=== PATIENT | female | born 2005 | race Caucasian/White ===

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

== ENCOUNTER 2025-10-08 20:26 | Emergency (ER) | payer BC, MEDICAID, SELFPAY ==
--- NOTE | 2025-10-08 | ECG_ITS ---
Test Reason : CP Blood Pressure : */* mmHG Vent. Rate : 88 BPM Atrial Rate : 88 BPM P-R Int : 130 ms QRS Dur : 84 ms QT Int : 354 ms P-R-T Axes : 28 55 -15 degrees QTcB Int : 428 ms Normal sinus rhythm Nonspecific T wave abnormality Borderline ECG When compared with ECG of 06-Dec-2023 22:02, No significant change was found Referred By: Generic ED Physician Electronically Signed By: JAY LINO
--- NOTE | ~2025-10-08 | XR_ITS ---
CLINICAL HISTORY: cp 2 view chest x-ray Comparison: CR/SR - XR CHEST 2 VIEWS - 07/06/24 21:21 EDT Findings: No consolidation or effusion. Normal size heart. No acute fracture. IMPRESSION: 1. No acute findings. This document has been electronically signed by: Aline Jo MD on 10/08/2025 21:50:12
[2025-10-08 20:33] VITALS: BP 113/55; PULSE 100; RESP 18; TEMP 36.8; O2SAT 99; BMI 23.6
--- NOTE | 2025-10-08 20:48 | MHC.EDTECH ---
Pt refusing labs at this time. trial examiner aware.
--- OUTSIDE RECORDS SUMMARY | 2025-10-08 20:50 | XMS_ITS | Encounter Summary ---
Author Organization [facility] Address [address] [place] [address] [place] [phone] Phone Care Team Providers Care Taping Foreman Name Role Phone Ashley Barakat MD Primary Care Provider [phone] Encounter Details Date Type Department Care Team ([facility] st Contact Info) Description 06/24/2024 Procedure Pass [facility], [place] [facility], [address]nd [place] [address] Social History Tobacco Use Types Packs/Day Years Used Date Smoking Tobacco: Never Smokeless Tobacco: Never Alcohol Use Standard Drinks/Week Comments Not Currently 2 (1 standard drink = 0.6 oz pur e alcohol) Education Answer Date Recorded Are you interested in more education? Not on rosalee e 03/14/2023 Are you concerned about learning? Not on file 03/14/2023 No 03/14/2023 No 03/14/2023 Digital Access Answer Date Recorded No 04/12/2023 No 04/12/2023 Reliable internet access at home? Not on file 04/12/2023 Device with a working camera? Not on file Intimate Partner Violence Answer Date R ecorded Are you denied basic needs s uch as food, clothing, or medical care? No 06/23/2024 In the past 12 months have y ou been in a relationship with a person who hurts, threatens, or tries to control you? No 06/23/2024 Are you denied basic needs s uch as food, clothing, or medical care? No 06/23/2024 In the past 12 months have y ou been in a relationship with a person who hurts, threatens, or tries to control you? No 06/23/2024 Comments No Sex and Gender Information Value Date Recorded Sex Assigned at Not on file Legal Sex Female 2:07 PM EDT Gender Identity Not on file Sexual Orientation Not on file documented as of this encounter Plan of Treatment Not on file documented as of this encounter Visit Diagnoses Not on filedocumented in this encounter Additional Health Concerns Infection Onset Date Last Indicated Resolved Time CDiff-Risk 06/22/2024 06/24/2024 06/24/2024 6:18 PM EDT CDiff-Risk 06/23/2024 06/23/2024 06/26/2024 10:0 8 AM EDT documented as of this encounter Care Teams Taping Foreman Relationship Specialty Start Date End Date Ashley Barakat MD [address] [place] [address], [facility] [address] [place] [address] [email or web address] PCP - General Pediatrics 03/08/20 documented as of this encounter Additional Source Comments The information contained in this document represents components of the legal health record. It is not the complete legal health record.[facility]
--- OUTSIDE RECORDS SUMMARY | 2025-10-08 20:51 | XMS_ITS | Clinical Summary ---
Author Organization [facility] Address [address] [place] [address] Care Team Providers Care Scrip Clerk Name Role Phone Howard Valdes MD Primary Care Provider [phone] Source Comments Please note that some or all of the patient's information could have additional privacy protections. State laws allow health care providers to render certain types of treatment to minors without parental consent. Please do not assume that this information can be shared solely by obtaining just the consent of the patient's parent/guardian. Please determine if all or part of the patient's care was rendered without parent/guardian involvement. And, if so, obtain the minor's consent prior to disclosure.[facility] Social History Tobacco Use Types Packs/Day Years Used Date Smoking Tobacco: Never Assessed Comments Unknown Sex and Gender Information Value Date Recorded Sex Assigned at Not on file Legal Sex Female 11:21 AM EST Gender Identity Not on file Sexual Orientation Not on file Plan of Treatment Health Maintenance Due Date Last Done Comments DTaP/TDAP/TD VACCINES (1 - Tdap) 2012 ADOLESCENT HIV SCREENING 2018 COVID-19 Vaccine (2023-2 5 season) 2025 INFLUENZA (#1) 2025 NIRSEVIMAB VACCINES UNDER 8 MONTHS Aged Out No longer eligible based on patient's age to complete this topic Insurance BLUE [employer]OSS Care Teams Scrip Clerk Relationship Specialty Start Date End Date Howard Valdes MD [address] [place] [address] [address] [phone] PCP - General 01/07/20
--- OUTSIDE RECORDS SUMMARY | 2025-10-08 20:51 | XMS_ITS ---
Author Name [facility] Organization Unknown Encounters Encounter Type Encounter Reason Primary Diagnosis Location Date Ambulatory [facility] 12/10/2024 Ambulatory [facility] 11/15/2024
--- OUTSIDE RECORDS SUMMARY | 2025-10-08 20:51 | XMS_ITS | Clinical Summary ---
Author Organization [address] Address [address] [place] [phone] Phone Care Team Providers Care Cattle Rancher Name Role Phone Physician, No Pcp Primary Care Provider Unavaila ble Allergies Active Allergy Reactions Criticality Noted Date Comments Amoxicillin 11/10/2024 Penicillin 11/10/2024 Active Problems Problem Noted Date Diagnosed Date Latent tuberculosis by blood test 06/26/2024 Alcohol abuse 06/24/2024 Other specified eating disorder 06/24/2024 Housing insecurity 06/23/2024 Weight loss 06/22/2024 Hyperprolactinemia ([facility] V24) 08/24/2022 Irregular menstrual bleeding 08/17/2022 PTSD (post-traumatic stress disorder) 08/17/2022 Anxiety 01/07/2020 Overview (11/10/2024): Certainly affecting exam, perception of pain Last Assessment & Plan: Normal screening today, doing well. Certainly affecting exam, perception of pain Last Assessment & Plan: Normal screening today, doing well Crohn's colitis, with rectal bleeding (CMS/HCC V24, CMS/[facility] V28) 01/04/2020 Overview (11/10/2024): Followed by [facility] (Akila Paulino), diet controlled. Last Assessment & Plan: Ongoing complaints of abdominal pain, suspicious for smoldering Crohn's, though labs last month were reassuring. GI follow-up currently scheduled for April. Unclear if joint complaints are related to Crohn's, but otherwise no systemic symptoms. We will obtain fecal calprotectin and see if GI can make an earlier appointment Primary insomnia 02/15/2017 Overview (11/10/2024): Melatonin ; Helps her to sleep but not maintain sleep -sometimes wakes, and when she wakes she is up for hrs - will try to go up to 10 mg if not better consider Neurology for sleep disorder 09/2021 - Melatonin ; Helps her to sleep but not maintain sleep -sometimes wakes, and when she wakes she is up for hrs - will try to go up to 10 mg if not better consider Neurology for sleep disorder 06/2022 - Sleeps 4-5 hours per night. Has tried melatonin in the past with unclear effect. Wakes up tired and drinks a venti coffee every morning. Discussed sleep hygiene techniques. Last Assessment & Plan: Sleeps 4-5 hours per night. Has tried melatonin in the past with unclear effect. Wakes up tired and drinks a venti coffee every morning. Discussed sleep hygiene techniques. Keratosis pilaris 09/07/2016 Overview (11/10/2024): Derm- [facility] Acne Clindamy , Avar/ unable to use per Derm Lactose intolerance 02/14/2016 Overview (11/10/2024): With everything Acquired tight Achilles tendon 11/02/2015 Overview (11/10/2024): Toe walking Rehab- sensory issue Off no and on better Need to do home exercise Imaging abnormalities 05/18/2015 Overview (11/10/2024): Ordered by endocrinology to follow question of precocious puberty; questionable small abn seen in pituitary on scan in 2005 stable on follow up MRI in 2006. Findings are without clinical significance. Reviewed images and reports with parent and given copies of reports from [facility] 05/18/15. No repeat brain imaging needed, no neuro follow up needed for this. Pituitary microadenoma (CMS/HCC V24, CMS/HCC V28 ) 05/18/2015 Overview (11/10/2024): Ordered by endocrinology to follow question of precocious puberty; questionable small abn seen in pituitary on scan in 2005 stable on follow up MRI in 2006. Findings are without clinical significance. Reviewed images and reports with parent and given copies of reports from [facility] 05/18/15. No repeat brain imaging needed, no neuro follow up needed for this. Autism spectrum disorder 02/11/2015 Overview (11/10/2024): Need [facility] therapist, care coordination Less anger now -Has in home counselor + Anxiety stable and possible ADHD Weighted blanket for sleep not covered Per mom Need [facility] therapist, care coordination Less anger now -Has in home counselor + Anxiety stable and possible ADHD Weighted blanket for sleep not covered Last Assessment & Plan: Mild, IEP supports in place, good social connections. Scoliosis 02/15/2014 Memory problem 02/02/2011 Overview (11/10/2024): Executive functioning low / memory concern / ADHD Neuropsych testing done [facility] Consult : no concerns Social History Tobacco Use Types Packs/Day Years Used Date Smoking Tobacco: Never Smokeless Tobacco: Never Tobacco Cessation:Counseling Given: Not Answered Alcohol Use Standard Drinks/Week Comments Not Currently 0 (1 standard drink = 0.6 oz pur e alcohol) Comments No Sex and Gender Information Value Date Recorded Sex Assigned at Not on file Legal Sex Female 1:23 PM EST Gender Identity Not on file Sexual Orientation Not on file Obstetrics History Para Term AB IAB SAB Ectopic Multiple Livin g Live Births 0 0 0 0 0 0 0 0 Last Filed Vital Signs Vital Sign Reading Time Taken Comments Blood Pressure 111/75 11/10/2024 2:18 PM EST Pulse 110 11/10/2024 2:18 PM EST Temperature - - Respiratory Rate - - Oxygen Saturation - - Inhaled Oxygen Concentration - - Weight 53.1 kg (117 lb) 11/10/2024 2:18 PM EST Height - - Body Mass Index - - Plan of Treatment Health Maintenance Due Date Last Done Comments Gonorrhea/Chlamydia Screening 2005 Meningococcal B Vaccine (1 of 2 - Standard) 2021 Hepatitis A Vaccines (2 of 2 - Risk 2-dose series) 02/22/2024 08/23/2023 Annual Well Child Visit (3-21 years old) 10/07/2024 03/02/2019, 02/21/2018, 02/15/2017, Additional history exists HIV Screening 10/07/2024 Social Influencers of Health Screening 10/07/2024 Depression Screening 11/18/2024 COVID-19 Vaccine ( season) 2025 Influenza Vaccine (#1) 2025 08/23/2023, 2020 DTaP,Tdap,and Td Vaccines (7 - Td or Tdap) 02/23/2026 02/24/2016, 01/09/2010, 01/09/2010, Additional history exists Cholesterol Screening (Lipid Panel) 04/03/2029 04/03/2024 RSV Immunization Adult Patients (1 - 1-dose 75+ series) 2080 HIB Vaccines Completed 04/19/2006, 07/19, 2005, Additional history exists Pneumococcal Vaccine: Pediatrics (0 to 5 Years) and At-Risk Patients (6 to 49 Years) Completed 04/19/2006, 2005, 2005, Additional history exists IPV Vaccines Completed 01/09/2010, 03/2006, 2005, Additional history exists MMR Vaccines Completed 01/09/2010, 01/21/2006 Meningococcal ACWY Vaccine Completed 02/03/2021, Hepatitis B Vaccines Completed 08/11/2021, 03/17/2021, 02/03/2021, Additional history exists HPV Vaccines Completed 07/04/2022, 03/18, 01/28/2020 Varicella Vaccines Completed 07/04/2022, 0 01/09/2010, 01/21/2006 Hepatitis C Screening Completed 06/24/2024 RSV Immunization Patients Under 20 months Aged Out No longer eligible based on patient's age to complete this [place] [phone] [place] - [place] [facility] Care Teams Cattle Rancher Relationship Specialty Start Date End Date Physician, No Pcp PCP - General 11/25/24
--- OUTSIDE RECORDS SUMMARY | 2025-10-08 20:51 | XMS_ITS | Encounter Summary ---
Author Organization [facility] Address [address] [place] [address] Care Team Providers Care Wellness Trainer Name Role Phone Darrianmiguel ángel Erika Primary Care Provider Encounter Details Date Type Department Care Team (Late st Contact Info) Description 04/02/2025 Telephone [facility] [address] [place] [phone] Telephone Intake, Staff Social History Tobacco Use Types Packs/Day Years Used Date Smoking Tobacco: Never Passive Smoke Exposure: Never Smokeless Tobacco: Never Alcohol Use Standard Drinks/Week Comments Never 0 (1 standard drink = 0.6 oz pur e alcohol) Comments Unknown Sex and Gender Information Value Date Recorded Sex Assigned at Female 02/19/2023 12:42 PM EDT Legal Sex Female 3:41 AM EDT Gender Identity Female 02/19/2023 12:42 PM EDT Sexual Orientation Straight 02/19/2023 12 :42 PM EDT documented as of this encounter Miscellaneous Notes * Telephone Encounter - Yolis Pollack - 04/02/2025 10:27 AM EDT New pt referral for Nut - DT not allowing scheduling dx not listed Please reach pt to schedule and thank you PAC documented in this encounter Plan of Treatment Scheduled Procedures Name Priority Associated Diagnoses Date/Ti me UPPER ENDOSCOPY; DIAGNOSTIC WITH BRUSH/WASH (SP) WITH POSSIBLE MODERATE SEDATION Crohn's disease of both small and large intestine with rectal bleeding (HCC) COLONOSCOPY, DIAGNOSTIC, WIT H POSSIBLE MODERATE SEDATION Crohn's disease of both small and large intestine with rectal bleeding (HCC) documented as of this encounter Goals Goal Patient Goal Type Associated Problems Recent Progress Patient-Stated? Author Autogenerat ed Goal Care Plan Autogenerated Problem No Rafia Boykin MD documented as of this encounter Visit Diagnoses Not on filedocumented in this encounter Additional Health Concerns Active Problems Noted Date Diagnosed Date Autogenerated Problem 03/31/2025 Infection Onset Date Last Indicated Resolved Time R/O C.diff 06/08/2025 06/08/2025 06/09/2025 8:30 PM EDT documented as of this encounter Care Teams Wellness Trainer Relationship Specialty Start Date End Date Erika Miller [address] [place] [id number] PCP - General 03/31/25 documented as of this encounter
--- OUTSIDE RECORDS SUMMARY | 2025-10-08 20:51 | XMS_ITS | Clinical Summary ---
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 Soybean Itching 06/11/2025 Medications * This document contains information received from the source organization and may not represent a complete record from that organization. therapeutic multivitamin (THERAGRAN) tablet Take 1 tablet by mouth daily. Active tretinoin (RETIN-A) 0.05% cream [address] (PROTONIX) 20 mg tablet Take 1 tablet (20 mg total) by mouth once a day. 30 tablet 5 Active ondansetron (ZOFRAN ODT) 4 mg disintegrating tablet Dissolve 1 tablet (4 mg total) in the mouth every 8 hours as needed for nausea. 24 tablet 5 Active Active Problems Problem Noted Date Diagnosed Date Frontal headache 06/10/2025 Assessment & Plan (06/13/2025 2:33 PM EDT): Patient reports 1-2 weeks of headache in bilateral forehead not alleviated by Tylenol. Reports some associated photophobia, vomiting and blurry vision although vision changes have been ongoing and she states she has not been wearing her glasses recently. Has hx of pituitary microadenoma with recent MRI 2022 w/ resolution of adenoma. Patient states headaches increased in frequency after a head trauma a month ago where she reports she was diagnosed with a concussion. Neurological exam reassuring. Started patient on migraine cocktail of depakote, tylenol, reglan and IVF fluids 06/12. Plan: No headache on day of discharge, she can continue home medications that she takes Assessment & Plan (06/12/2025 11:14 AM EDT): Patient reports 1-2 weeks of headache in bilateral forehead not alleviated by Tylenol. Reports some associated photophobia, vomiting and blurry vision although vision changes have been ongoing and she states she has not been wearing her glasses recently. Has hx of pituitary microadenoma with recent MRI 2022 w/ resolution of adenoma. Patient states headaches increased in frequency after a head trauma a month ago where she reports she was diagnosed with a concussion. Neurological exam reassuring. Started patient on migraine cocktail of depakote, tylenol, reglan and IVF fluids 06/12. Plan: - Caffeine tablet 100mg q4h PRN - IV tylenol - IV depakote 500mg - Reglan for nausea - LR 1L bolus Assessment & Plan (06/11/2025 2:28 PM EDT): Patient reports 1-2 weeks of headache in bilateral forehead not alleviated by Tylenol. Denies photophobia, phonophobia, vision changes. Plan: -Caffeine tablet 100mg q4h PRN Assessment & Plan (06/10/2025 5:50 PM EDT): Patient reports 1-2 weeks of headache in bilateral forehead not alleviated by Tylenol. Denies photophobia, phonophobia, vision changes. Plan: -Caffeine tablet 100mg q4h PRN Crohn's colitis, other complication 06/09/2025 Overview (06/09/2025): -prednisolone taper starting at 40mg -pain management with Tylenol -CLD diet, consider IV fluids - Assessment & Plan (06/13/2025 2:33 PM EDT): Patient w/ history of Crohn's of the large and small intestine, with 2-3 flares per year. She has been prescribed Humira, Entyvio and Rinvoq for her IBD in the past, however she discontinued these due to not feeling well after taking these. When she has had flares in the past she reports improving w/ steroid therapy. She presented to the ED with 5 days worth of abdominal pain, N/V (nonbloody), with intermittent bloody bowel movements. Infectious stool studies not pursued as patient did not have diarrhea, symptoms not consistent for C. difficile or other infectious etiologies for her abdominal pain. CT A/P w/ contrast showing enterocolitis concerning for Crohn's flare. GI team evaluated patient and recommended she be started on prednisone. She will be discharged on prednisone taper for 6 weeks with GI clinic follow-up. Plan: - Discharged on prednisone p.o. taper. 40 mg for 1 week, 30 mg for 1 week, 20 mg for 1 week, 15 mg for 1 week, 10 mg for 1 week, 50 mg for 1 week -She has GI follow-up on 08/11/2025 Assessment & Plan (06/12/2025 2:35 PM EDT): Patient w/ history of Crohn's of the large and small intestine, with 2-3 flares per year. She has been prescribed Humira, Entyvio and Rinvoq for her IBD in the past, however she discontinued these due to not feeling well after taking these. When she has had flares in the past she reports improving w/ steroid therapy. She is now presenting to the ED with 5 days worth of abdominal pain, N/V (nonbloody), with intermittent bloody bowel movements. At time of arrival to ED, patient is afebrile, tachycardic to 106 since improved to 86, RR 20, BP 116/83 and SPO2 97% on RA. Labs notable for Hgb 11.4, Hct 35.9 w/ repeat at 11.1 and Hct 34.6. ESR 42, CRP 36.6. Lipase 50. Troponin <6. HCG negative. UA showing 1+ leuk esterase, negative nitrites. Urine and stool studies ordered and pending. CXR obtained, negative. CT A/P w/ contrast showing enterocolitis concerning for Crohn's flare. In the ED, she received a total of 2L IVF, Protonix, Zofran, Reglan Morphine and IV Tylenol. Abdominal exam - mildly TTP, nondistended, no guarding/rigidity/rebound tenderness. 6 week prednisone course started 06/11. On 06/12 patient reported nausea and vomiting and declined PO medication. Started her on solumedrol 30mg BID until can tolerate PO. Plan: -GI following, appreciate recs -Transitioned to solumedrol 30mg BID 06/12 d/t vomiting and not able to tolerate PO -Defer obtaining stool cultures as patient is not having diarrhea -Fecal calprotectin pending -No s/s of active infection, monitoring off antibiotics -Continue Protonix -Pain control with Tylenol for now -Zofran, Reglan for nausea -Daily CBC, CMP, CRP -VS q4 hours Assessment & Plan (06/11/2025 2:28 PM EDT): Patient w/ history of Crohn's of the large and small intestine, with 2-3 flares per year. She has been prescribed Humira, Entyvio and Rinvoq for her IBD in the past, however she discontinued these due to not feeling well after taking these. When she has had flares in the past she reports improving w/ steroid therapy. She is now presenting to the ED with 5 days worth of abdominal pain, N/V (nonbloody), with intermittent bloody bowel movements. At time of arrival to ED, patient is afebrile, tachycardic to 106 since improved to 86, RR 20, BP 116/83 and SPO2 97% on RA. Labs notable for Hgb 11.4, Hct 35.9 w/ repeat at 11.1 and Hct 34.6. ESR 42, CRP 36.6. Lipase 50. Troponin <6. HCG negative. UA showing 1+ leuk esterase, negative nitrites. Urine and stool studies ordered and pending. CXR obtained, negative. CT A/P w/ contrast showing enterocolitis concerning for Crohn's flare. In the ED, she received a total of 2L IVF, Protonix, Zofran, Reglan Morphine and IV Tylenol. Abdominal exam - mildly TTP, nondistended, no guarding/rigidity/rebound tenderness. 6 week prednisone course started 06/11. Plan: -GI following, appreciate recs -Start 30mg prednisone 30mg BID (D1 06/11) -Defer obtaining stool cultures as patient is not having diarrhea -Fecal calprotectin pending -C. diff order discontinued due to no bowel movement for past 3-4 days -No s/s of active infection, monitoring off antibiotics -Continue Protonix -Pain control with Tylenol for now -Zofran, Reglan for nausea -Daily CBC, CMP, CRP -VS q4 hours Assessment & Plan (06/10/2025 5:50 PM EDT): Patient w/ history of Crohn's of the large and small intestine, with 2-3 flares per year. She has been prescribed Humira, Entyvio and Rinvoq for her IBD in the past, however she discontinued these due to not feeling well after taking these. When she has had flares in the past she reports improving w/ steroid therapy. She is now presenting to the ED with 5 days worth of abdominal pain, N/V (nonbloody), with intermittent bloody bowel movements. At time of arrival to ED, patient is afebrile, tachycardic to 106 since improved to 86, RR 20, BP 116/83 and SPO2 97% on RA. Labs notable for Hgb 11.4, Hct 35.9 w/ repeat at 11.1 and Hct 34.6. ESR 42, CRP 36.6. Lipase 50. Troponin <6. HCG negative. UA showing 1+ leuk esterase, negative nitrites. Urine and stool studies ordered and pending. CXR obtained, negative. CT A/P w/ contrast showing enterocolitis concerning for Crohn's flare. In the ED, she received a total of 2L IVF, Protonix, Zofran, Reglan Morphine and IV Tylenol. Abdominal exam - mildly TTP, nondistended, no guarding/rigidity/rebound tenderness. Plan: -GI following, appreciate recs -6 week steroid taper pending ID approval -defer obtaining stool cultures as patient is not having diarrhea -obtaining fecal calprotectin -C. diff order discontinued due to no bowel movement for past 3-4 days -No s/s of active infection, monitoring off antibiotics -Continue Protonix -Pain control with Tylenol for now -Zofran, Reglan for nausea -Daily CBC, CMP -VS q4 hours Assessment & Plan (06/09/2025 5:06 AM EDT): Patient w/ history of Crohn's of the large and small intestine, with 2-3 flares per year. She has been prescribed Humira, Entyvio and Rinvoq for her IBD in the past, however she discontinued these due to not feeling well after taking these. When she has had flares in the past she reports improving w/ steroid therapy. She is now presenting to the ED with 5 days worth of abdominal pain, N/V (nonbloody), with intermittent bloody bowel movements. At time of arrival to ED, patient is afebrile, tachycardic to 106 since improved to 86, RR 20, BP 116/83 and SPO2 97% on RA. Labs notable for Hgb 11.4, Hct 35.9 w/ repeat at 11.1 and Hct 34.6. ESR 42, CRP 36.6. Lipase 50. Troponin <6. HCG negative. UA showing 1+ leuk esterase, negative nitrites. Urine and stool studies ordered and pending. CXR obtained, negative. CT A/P w/ contrast showing enterocolitis concerning for Crohn's flare. In the ED, she received a total of 2L IVF, Protonix, Zofran, Reglan Morphine and IV Tylenol. Abdominal exam - mildly TTP, nondistended, no guarding/rigidity/rebound tenderness. Plan - GI consult in AM - Follow up stool studies - No s/s of active infection, monitoring off antibiotics. - CLD - Continue Protonix - Pain control with Tylenol for now - Zofran, Reglan for nausea - Follow up morning labs - CBC, CMP - S/p 2L IVF, consider more pending repeat labs - VS q4 hours - Lovenox for VTE ppx Housing insecurity 06/09/2025 Assessment & Plan (06/13/2025 2:33 PM EDT): Patient lives in a nursing home in [place] and reports difficulty obtaining food consistent with her needs for Crohn's disease management. Plan: -SW consulted, patient choosing to be discharged back to nursing home Assessment & Plan (06/12/2025 11:14 AM EDT): Patient lives in a nursing home in [place] and reports difficulty obtaining food consistent with her needs for Crohn's disease management. Plan: -RADHA consulted and following Assessment & Plan (06/11/2025 2:28 PM EDT): Patient lives in a nursing home in [place] and reports difficulty obtaining food consistent with her needs for Crohn's disease management. Plan: -RADHA consulted and following Assessment & Plan (06/10/2025 5:50 PM EDT): Patient lives in a nursing home in [place] and reports difficulty obtaining food consistent with her needs for Crohn's disease management. Plan: -RADHA consulted and following Food insecurity 06/09/2025 Assessment & Plan (06/13/2025 2:33 PM EDT): Patient lives in a nursing home in [place] and reports difficulty obtaining food consistent with her needs for Crohn's disease management. Plan: -RADHA consulted, patient choosing to be discharged back to nursing home Assessment & Plan (06/12/2025 11:14 AM EDT): Patient lives in a nursing home in [place] and reports difficulty obtaining food consistent with her needs for Crohn's disease management. Plan: -RADHA consulted and following Assessment & Plan (06/11/2025 2:28 PM EDT): Patient lives in a nursing home in [place] and reports difficulty obtaining food consistent with her needs for Crohn's disease management. Plan: -RADHA consulted and following Assessment & Plan (06/10/2025 5:50 PM EDT): Patient lives in a nursing home in [place] and reports difficulty obtaining food consistent with her needs for Crohn's disease management. Plan: -RADHA consulted and following Hyperprolactinemia 08/24/2022 Elevated erythrocyte sedimentation rate 08/24/20 22 Irregular menstrual bleeding 08/17/2022 PTSD (post-traumatic stress disorder) 08/17/2022 Headache, chronic migraine without aura 10/06/20 21 Overview (08/17/2022): Comes along with Crohn's, but describes as migraines Last Assessment & Plan: Get Crohn's labs ordered by GI. Will check Covid test. Discussed ER as an option is headache isn't breaking. Anxiety 01/07/2020 Overview (08/17/2022): Certainly affecting exam, perception of pain Last Assessment & Plan: Normal screening today, doing well Crohn's disease of both smal l and large intestine with rectal bleeding 01/04/2020 Overview (08/17/2022): Followed by [facility] (Akila Paulino), diet controlled. Last Assessment & Plan: Ongoing complaints of abdominal pain, suspicious for smoldering Crohn's, though labs last month were reassuring. GI follow-up currently scheduled for April. Unclear if joint complaints are related to Crohn's, but otherwise no systemic symptoms. We will obtain fecal calprotectin and see if GI can make an earlier appointment Pituitary microadenoma 05/18/2015 Overview (08/17/2022): Ordered by endocrinology to follow question of precocious puberty; questionable small abn seen in pituitary on scan in 2005 stable on follow up MRI in 2006. Findings are without clinical significance. Reviewed images and reports with parent and given copies of reports from [facility] 05/18/15. No repeat brain imaging needed, no neuro follow up needed for this. GERD (gastroesophageal reflux disease) 4 Scoliosis 02/15/2014 Asperger's disorder 12/10/2012 Resolved Problems Problem Noted Date Diagnosed Date Resolved Date Latent tuberculosis by blood test 06/09/2025 06/13/2025 Assessment & Plan (06/13/2025 2:33 PM EDT): Patient with prior Quanitferon testing in 2021 being negative and quantiferon borderline in 2022. During this time patient was living in a nursing home with congregate living. During admission at [facility] for Crohn's flare, in June of 2024, was started on four month course of Rifampin 600 mg PO daily with scheduled followed up with ID specialist whom she saw in September 2024. During that visit, patient reported that she did not recall taking Rifampin, so was provided with a new prescription in September. Patient again seen in March of 2025 with GI clinic and at that time reported to have noncompliance with Rifampin, so was ordered for a repeat Quantiferon gold test, however this was never collected. She denies any fever, chills, rashes, chest pain, shortness of breath, cough, palpitations, lower extremity pain or swelling. QuantiFERON gold test during this hospitalization negative. Patient was seen by ID on 06/10, who felt that she was unlikely to have latent TB given previous borderline test, no geographical risk factors, and three negative tests. Patient is not considered to have latent tuberculosis. She could be a potential candidate for biologic therapy for Crohn's disease if otherwise indicated. Plan: - QuantiFERON gold test during this hospitalization negative, patient is not considered to have latent TB Assessment & Plan (06/12/2025 11:14 AM EDT): Patient with history of latent TB, with prior Quanitferon testing in 2021 being negative and quantiferon borderline in 2022. During this time patient was living in a nursing home with congregate living. During admission at [facility] for Crohn's flare, in June of 2024, was started on four month course of Rifampin 600 mg PO daily with scheduled followed up with ID specialist whom she saw in September 2024. During that visit, patient reported that she did not recall taking Rifampin, so was provided with a new prescription in September. Patient again seen in March of 2025 with GI clinic and at that time reported to have continued noncompliance with Rifampin, so was ordered for a repeat Quantiferon gold test, however this was never collected. She denies any fever, chills, rashes, chest pain, shortness of breath, cough, palpitations, lower extremity pain or swelling. Patient was seen by ID on 06/10, who felt that she was unlikely to have latent TB given previous borderline test, no geographical risk factors, and three previous negative tests. Plan: -Repeat Quantiferon gold pending -Standard precautions; no current s/s of active diease -Ok to start steroids per ID Assessment & Plan (06/11/2025 2:28 PM EDT): Patient with history of latent TB, with prior Quanitferon testing in 2021 being negative and quantiferon borderline in 2022. During this time patient was living in a nursing home with congregate living. During admission at [facility] for Crohn's flare, in June of 2024, was started on four month course of Rifampin 600 mg PO daily with scheduled followed up with ID specialist whom she saw in September 2024. During that visit, patient reported that she did not recall taking Rifampin, so was provided with a new prescription in September. Patient again seen in March of 2025 with GI clinic and at that time reported to have continued noncompliance with Rifampin, so was ordered for a repeat Quantiferon gold test, however this was never collected. She denies any fever, chills, rashes, chest pain, shortness of breath, cough, palpitations, lower extremity pain or swelling. Patient was seen by ID on 06/10, who felt that she was unlikely to have latent TB given previous borderline test, no geographical risk factors, and three previous negative tests. Plan: -Repeat Quantiferon gold pending -Standard precautions; no current s/s of active diease -Ok to start steroids per ID Assessment & Plan (06/10/2025 5:50 PM EDT): Patient with history of latent TB, with prior Quanitferon testing in 2021 being negative and quantiferon boarderline in 2022. During this time patient was living in a nursing home with congregate living. During admission at [facility] for Crohn's flare, in June of 2024, was started on four month course of Rifampin 600 mg PO daily with scheduled followed up with ID specialist whom she saw in September 2024. During that visit, patient reported that she did not recall taking Rifampin, so was provided with a new prescription in September. Patient again seen in March of 2025 with GI clinic and at that time reported to have continued noncompliance with Rifampin, so was ordered for a repeat Quantiferon gold test, however this was never collected. She denies any fever, chills, rashes, chest pain, shortness of breath, cough, palpitations, lower extremity pain or swelling. Plan: -Repeat Quantiferon gold pending -ID consulted, appreciate recs -Standard precautions; no current s/s of active diease Assessment & Plan (06/09/2025 5:06 AM EDT): Patient with history of latent TB, with prior Quanitferon testing in 2021 being negative to now borderline in 2022. During this time patient was living in a nursing home with congregate living. During admission at [facility] for Crohn's flare, in June of 2024, was started on four month course of Rifampin 600 mg PO daily with scheduled followed up with ID specialist whom she saw in September 2024. During that visit, patient reported that she did not recall taking Rifampin, so was provided with a new prescription in September. Patient again seen in March of 2025 with GI clinic and at that time reported to have continued noncompliance with Rifampin, so was ordered for a repeat Quantiferon gold test, however this was never collected. She denies any fever, chills, rashes, chest pain, shortness of breath, cough, palpitations, lower extremity pain or swelling. Plan - Recheck Quantiferon gold - ID consult pending results - Standard precautions; no current s/s of active diease Rheumatoid arthritis 06/09/2025 025 Overview (06/09/2025): -check rheumatoid factor, anti-CCP Assessment & Plan (06/11/2025 2:28 PM EDT): Patient reports ongoing pain in her finger joints and ankles. Joints are not red or inflamed. ESR and CRP elevated, likely in the setting of active Crohn's disease flare. Patient reports previously receiving a diagnosis of rheumatoid arthritis in the past, however she had no follow up for this and previous anti-CCP and RF have been negative. She also reports a history of joint pain when she is experiencing a flare of her Crohn's symptoms. No further workup indicated at this time. Assessment & Plan (06/10/2025 5:50 PM EDT): Patient reports ongoing pain in her finger joints and ankles. Joints are not red or inflamed. ESR and CRP elevated, likely in the setting of active Crohn's disease flare. 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 03/03/20 19 Immunizations Immunization Administration Dates Next Due Diphtheria, Tetanus Toxoids and Acellular Pertussis Vaccine 01/09/2010,07/23/2006,2005,05/04,2005 Diphtheria, Tetanus Toxoids and Acellular Pertussis Vaccine, 5 Pertussis Antigens 01/09/2010,07/23/2006,2005,05/04,2005 Haemophilus Influenzae Type B Vaccine, Conjugate Unspecified Formulation 04/19/2006,2005,2005,03/12 Haemophilus Influenzae Type B Vaccine, PRP-OMP Conjugate 04/19/2006,2005,2005,03/12 Haemophilus Influenzae Type B Vaccine, PRP-T Conjugate 04/19/2006,2005,2005,03/12 Hep B, Unspecified 2005,2005, 005 Hepatitis B Vaccine, Pediatr ic or Pediatric/Adolescent Dosage 08/11/2021,03/17/2021,02/03/2021,10/26,2005,2005 Human Papillomavirus 9-Valent Vaccine 07/04/2022 ,04/01/2020,01/28/2020 Influenza, Injectable, Quadr ivalent, Preservative Free 08/11/2021 Measles, Mumps, and Rubella Vaccine 01/09/2010,0 01/21/2006 Meningococcal Polysaccharide (Groups A, C, Y and W-135) Diphtheria Toxoid Conjugate Vaccine (MCV4P) 02/03/2021,02/24/2016 Pneumococcal Conjugate Vacci ne, 7 Valent 04/19/2006,2005,2005,03/12 Poliovirus Vaccine, Inactivated 01/09/20 10,07/23/2006,2005,03/12 Tetanus Toxoid, Reduced Diph theria Toxoid, and Acellular Pertussis Vaccine, Adsorbed 02/24/2016 Varicella Virus Vaccine 07/04/2022,01/09/2010, Family History Medical History Relation Name Comments No Known Problems Father No Known Problems Mother Diabetes Neg Hx Thyroid disease Neg Hx Relation Name Status Comments Father Mother Social History Tobacco Use Types Packs/Day Years Used Date Smoking Tobacco: Never Passive Smoke Exposure: Never Smokeless Tobacco: Never Tobacco Cessation:Counseling Given: Not Answered Alcohol Use Standard Drinks/Week Comments Never 0 (1 standard drink = 0.6 oz pur e alcohol) [facility] Utilities Answer Date Recorded In the past 12 months has th e [employer], gas, oil, or water [place] threatened to shut off services in your home? No 06/08/2025 Hunger Vital Sign Answer Date Recorded Within the past 12 months, y ou worried that your food would run out before you got the money to buy more. Often true 06/08/20 25 Within the past 12 months, t he food you bought just didn't last and you didn't have money to get more. Often true 06/08/2025 Transportation Answer Date Recorded In the past 12 months, has l ack of reliable transportation kept you from medical appointments, meetings, work or from getting things needed for daily living? No 06/08/2025 Housing Answer Date Recorded Housing Risk Low Not on file 06/08/2025 Housing Risk Medium Not on file 06/08/2025 Housing Risk High 1 06/08/2025 What is your living situation today? LSNOSTEADY 06/08/2025 Comments No Sex and Gender Information Value Date Recorded Sex Assigned at Female 02/19/2023 12:42 PM EDT Legal Sex Female 3:41 AM EDT Gender Identity Female 02/19/2023 12:42 PM EDT Sexual Orientation Straight 02/19/2023 12 :42 PM EDT Last Filed Vital Signs Vital Sign Reading Time Taken Comments Blood Pressure 105/62 06/13/2025 8:43 AM EDT Pulse 88 06/13/2025 8:43 AM EDT Temperature 37.1 C (98.8 F) 06/13/2025 8:43 AM EDT Respiratory Rate 18 06/13/2025 8:43 AM EDT Oxygen Saturation 98% 06/13/2025 8:43 AM EDT Inhaled Oxygen Concentration - - Weight 54.4 kg (120 lb) 06/09/2025 11:12 AM EDT Height 152.4 cm (5') 06/09/2025 11:12 AM EDT Body Mass Index 23.44 06/09/2025 11:12 AM EDT Plan of Treatment Scheduled Procedures Name Priority Associated Diagnoses Date/Ti me UPPER ENDOSCOPY; DIAGNOSTIC WITH BRUSH/WASH (SP) WITH POSSIBLE MODERATE SEDATION Crohn's disease of both small and large intestine with rectal bleeding (HCC) COLONOSCOPY, DIAGNOSTIC, WIT H POSSIBLE MODERATE SEDATION Crohn's disease of both small and large intestine with rectal bleeding (HCC) Health Maintenance Due Date Last Done Comments [address] [facility] [address] [facility] [address] [facility] [address] [facility] [address] [facility] [address] [facility] [address] [facility] 01/11/[address] [facility] 03/30/[address] [facility] 06/28/[address] [facility] 12/25/[address] [facility] 04/30/[address] [facility] 2008 Well Child Check 2008 Depression Screening and Follow-Up 11/18/2024 Influenza Vaccine (#1) 2025 08/23/2023, 2020 Chlamydia Screening 06/23/2025 06/23/2024, COVID-19 Vaccine (1 - 2024-2 6 season) 2025 DTaP,Tdap,and Td Vaccines (7 - Td or Tdap) 02/23/2026 02/24/2016, 01/09/2010, 01/09/2010, Additional history exists Social Drivers of Health Roz ual Screening 06/08/2026 06/08/2025 Pneumococcal Vaccine: Pediat vlad (0-5 Years) and At-Risk Patients (6-50 Years) Completed 04/19/2006, 2005, 2005, Additional history exists MMR Vaccines Completed 01/09/2010, 01/21/2006 Meningococcal Vaccine Completed 02/03/2021, 016 Hepatitis B Vaccines Completed 08/11/2021, 03/17/2021, 02/03/2021, Additional history exists HPV Vaccines Completed 07/04/2022, 03/18, 01/28/2020 Varicella Vaccines Completed 07/04/2022, 0 01/09/2010, 01/21/2006 HIV Screening Completed 06/24/2024 Hepatitis C Screening Completed 06/08/2025 , 06/24/2024, 12/03/2023 Goals Goal Patient Goal Type Associated Problems Recent Progress Patient-Stated? Author Autogenerat ed Goal Care Plan Autogenerated Problem No Rafia Boykin MD Procedures * Due to [place] Sky[employer] law, this organization might not be sharing negative HIV tests. Procedure Name Priority Date/Time Associated Diagnosis Comments HEPATITIS C ANTIBODY W/REFLEX TO HCV RNA, QUANTITATIVE PCR STAT 06/08/2025 12:14 PM EDT from Last 3 Months or Most Recently Relevant to Health Maintenance Results * Due to [place] Sky[employer] law, this organization might not be sharing negative HIV tests. * Hepatitis C Antibody w/Reflex to HCV RNA, Quantitative PCR (06/08/2025 12:14 PM EDT) Hepatitis C Antibody NON-REACT KERRY NON-REACT KERRY 06/08/2025 9:11 PM EDT [facility] Comment: HCV antibody was non-reactive. There is no laboratory evidence of HCV infection. In most cases, no further action is required. However, if recent HCV exposure is suspected, a test for HCV RNA (test code 38487) is suggested. For additional information please refer to http://education.Zafin/faq/MZM11s6 (This link is being provided for informational/ educational purposes only.) Blood Structure of peripheral vein / Unknown Venipuncture / Unknown 06/08/2025 12:14 PM EDT 06/08/2025 12:32 PM EDT Narrative [facility] - 06/08/2025 9:11 PM EDT [facility] Received Date:[id number] Acosta Walker MD LAB BLOOD ORDERABLES Final Result [facility] [address] [facility] [address], [place] [address], [place] [phone] [facility] [address] [facility] [address], [place] [address], [place] [phone] from Last 3 Months or Most Recently Relevant to Health Maintenance Additional Health Concerns Active Problems Noted Date Diagnosed Date Autogenerated Problem 03/31/2025 [place] [id number] [facility] Advance Directives * Full Code (Latest Code Status on File) Date Activated Date Inactivated Comments 06/09/2025 12:55 AM 06/13/2025 7:56 PM 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
--- OUTSIDE RECORDS SUMMARY | 2025-10-08 20:51 | XMS_ITS | Encounter Summary ---
Author Organization [facility] Address [address] [place] [address] [place] [address] Phone Care Team Providers Care Shoe Repairman Name Role Phone Ashley Barakat MD Primary Care Provider [phone] Encounter Details Date Type Department Care Team (Late st Contact Info) Description 08/05/2020 Procedure Pass OR Admitting Dept - Virtual Department [address] [place] [address] Social History Tobacco Use Types Packs/Day Years [...] documented as of this encounter Care Teams Shoe Repairman Relationship Specialty Start Date End Date Ashley Barakat MD [address] [facility] [address] [place] [address] PCP - General Pediatrics 03/08/20 documented as of this encounter Additional Source Comments The information contained in this document represents components of the legal health record. It is not the complete legal health record.[facility]
--- OUTSIDE RECORDS SUMMARY | 2025-10-08 20:51 | XMS_ITS | Data Portability ---
Author Organization [facility] [employer] [facility], [address] Address [address] [place] [address] Assessment No assessment recorded. Plan of Treatment Reminders Order Date Submit Date Provider Last Modified By Organization Details Last Modified Time Details Appointments None recorded. Lab SARS CoV 2 (COVID-19) Ag, QL, IA, upper respiratory specimen 2024 025 [facility] [address] [place], [address], 5 17:49:50 rapid flu (A+B) 2024 025 [facility], [address] [place], [address], 5 17:49:50 SARS CoV 2 (COVID-19) Ag, QL, IA, upper respiratory specimen 2023 024 [address], [address] [place], [address], 4 13:17:48 rapid strep group A, throat 2023 [address], [address] [place], [address], 4 13:17:48 urinalysis, dipstick 2022 023 [email or web address] [facility], [address] [facility], [place], [address], 3 13:14:41 test, urine 2022 023 [email or web address] [facility], [address] [facility], [place], [address], 3 13:14:42 culture, urine 2022 023 [facility], [facility], [place], [address], 3 12:06:30 rapid SARS CoV 2 Ag, QL IA, respiratory specimen 2022 023 [facility], [address] [facility], [place], [address], 3 13:14:41 Referral None recorded. Procedures None recorded. Surgeries None recorded. Imaging None recorded. Medication Orders cephalexin 250 mg/5 mL oral suspension 2023 024 [facility][id number], [address] [facility] , [place], [address], 5 17:23:26 Patient TargetsNo targets recorded. Patient Instructions Encounter Date Encounter Id Patient Instructions Last Modified By Organization Details Last Modified Time 12/23/2022 [id number] viral infections : care instructions [email or web address] Not available 12/23/2022 13:15:09 You have been diagnosed with an Upper Respiratory Infection. It is important to drink plenty of fluids and rest while you are ill. Hot Tea with Honey is good to help with a sore throat. Some OTC medications that are helpful with your current symptoms would include. 1. Tylenol 2. Kristina Selzer Cold/Flu Effervescent Pills 3. Saline Nasal Ambrose Try an avoid other people and wash your hands regularly. Most symptoms will improve on its own in 7-10 days. If symptoms last longer than 10 days then I would suggest getting a re-evaluate by us or your Primary Care Doctor. I would be seen more urgently if you develop any of the following symptoms: 1. Fever > 101.0 2. Increased facial pain or pressure 3. Purulent Discharge from the nose that occurs all day -(not just first thing in the AM) 4. Worsening Sore throat 5. Cough or Shortness of Breath I would go to the ER if you develop: 1. Severe Headache 2. Fever > 102.5 3. Still Neck 4. Shortness of Breath or Chest Pain. [email or web address] Not available 12/23/2022 13:14:34 11/15/2024 [id number] strep throat: care instructions Not available 11/15/2024 13:17:48 12/10/2024 [id number] fatigue: care instructions Not available 12/10/2024 17:49:50 upper respirator y infection (cold): care instructions Not available 12/10/2024 17:49:50 Reason for Referral None Reported. Results Created Date Observation Date Name Description Value Unit Range Abnormal Flag Note LastModifiedBy Organization Detail LastModifiedTime 12/23/1912/26/2022 URINE CULTU RE, ROUTI NE urine culture, routine FINAL REPORT abnormal Not Available [facility] ([facility]) [address], [place], [address], 12/26/2022 16:06:46 12/23/19 23 12/26/2022 URINE CULTU RE, ROUTI NE result 1 ESCHER ICHIA COLI abnormal Cefaz abdullahi <=4 ug/mL Cefaz abdullahi with an NEGIN <=16 predi cts susce ptibi lity to the oral agent s cefac burt, cefdi brigid, cefpo doxim e, cefpr ozil, cefur oxime , cepha lexin , and lorac arbef when used for thera py of uncom plica paulette urina ry tract infec tions due to E. coli, Klebs iella pneum oniae , and Prote us mirab ilis. 10,00 0-25, 000 colon y formi ng units per mL Not Available [facility] ([facility]) [address], [place], [address], 12/26/2022 16:06:46 12/23/19 23 12/26/2022 URINE CULTU RE, ROUTI NE antimicrobia l susceptibili ty COMMEN T S = Susce ptibl e; I = Inter media te; R = Resis tant P = Posit osman; N = Negat osman MICS are expre ssed in micro grams per mL Antib iotic RSLT# 1 RSLT# 2 RSLT# 3 RSLT# 4 Amoxi cilli n/Cla vulan ic Acid S Ampic illin S Cefep cathie S Ceftr iaxon e S Cefur oxime S Cipro floxa jona S Ertap enem S Genta micin S Imipe nem S Levof loxac in S Merop enem S Nitro furan toin S Piper acill in/Ta zobac torres S Tetra cycli ne S Tobra mycin S Trime thopr im/Johnson lfa S Not Available [facility] ([facility]) [address], [place], [address], 12/26/2022 16:06:46 12/23/19 23 12/24/2022 PLEAS E NOTE please note Commen t The date and/o r time of colle ction was not indic ated on the requi sitio n as requi red by state and jan al law. The date of recei pt of the speci men was used as the colle ction date if not suppl ied. Not Available [facility] ([facility]) [address], [place], [address], 12/25/2022 12:06:31 12/23/19 23 12/23/2022 pregn melissa test, urine Unknown Analyte Normal = Negati ve Not Available eric maldonado [address] [place], [address], 12/23/2022 12:55:31 12/23/19 23 12/23/2022 pregn melissa test, urine Unknown Analyte negati ve Not Available eric maldonado [address] [place], [address], 12/23/2022 12:55:31 12/23/19 23 12/23/2022 urina lysis , dipst ick Unknown Analyte Normal = light yellow Not Available eric maldonado [address], [place], [address], 12/23/2022 12:55:30 12/23/19 23 12/23/2022 urina lysis , dipst ick Unknown Analyte Normal = clear Not Available eric maldonado [address], [place], [address], 12/23/2022 12:55:30 12/23/19 23 12/23/2022 urina lysis , dipst ick Unknown Analyte Light Yellow Not Available [address], [place], [address], 12/23/2022 12:55:30 12/23/19 23 12/23/2022 urina lysis , dipst ick Unknown Analyte Clear Not Available [facility] [address], [place], [address], 12/23/2022 12:55:30 12/23/19 23 12/23/2022 urina lysis , dipst ick Unknown Analyte Normal = negati ve Not Available eric [address], [place], [address], 12/23/2022 12:55:30 12/23/19 23 12/23/2022 urina lysis , dipst ick Unknown Analyte Normal = Negati ve Not Available [facility] [address], [place], [address], 12/23/2022 12:55:30 12/23/19 23 12/23/2022 urina lysis , dipst ick Unknown Analyte Normal = Negati ve Not Available [facility] [address], [place], [address], 12/23/2022 12:55:30 12/23/1912/23/2022 urina lysis , dipst ick Unknown Analyte Normal = 1.010, 1.015, 1.020 Not Available [facility] mal[facility] [address], [place], [address], 12/23/2022 12:55:30 12/23/19 23 12/23/2022 urina lysis , dipst ick Unknown Analyte Normal = Negati ve Not Available [facility] mal[facility] [address], [place], [address], 12/23/2022 12:55:30 12/23/19 23 12/23/2022 urina lysis , dipst ick Unknown Analyte Normal = 6.5, 7.0, 7.5, 8.0 Not Available [facility] [address], [place], [address], 12/23/2022 12:55:30 12/23/1912/23/2022 urina lysis , dipst ick Unknown Analyte Normal = Negati ve Not Available eric maldonado [address], [place], [address], 12/23/2022 12:55:30 12/23/19 23 12/23/2022 urina lysis , dipst ick Unknown Analyte Normal = 0.2, 1.0 Not Available [facility] [address], [place], [address], 12/23/2022 12:55:30 12/23/19 23 12/23/2022 urina lysis , dipst ick Unknown Analyte Normal = Negati ve Not Available [facility] [address], [place], [address], 12/23/2022 12:55:30 12/23/19 23 12/23/2022 urina lysis , dipst ick Unknown Analyte Normal = Negati ve Not Available eric maldonado [address], [place], [address], 12/23/2022 12:55:30 12/23/19 23 12/23/2022 urina lysis , dipst ick Unknown Analyte Negati ve Not Available eric maldonado [address], [place], [address], 12/23/2022 12:55:30 12/23/1912/23/2022 urina lysis , dipst ick Unknown Analyte Negati ve Not Available eric maldonado [address], [place], [address], 12/23/2022 12:55:30 12/23/19 23 12/23/2022 urina lysis , dipst ick Unknown Analyte Negati ve Not Available eric [address], [place], [place], [address], 12/23/2022 12:55:30 12/23/19 23 12/23/2022 urina lysis , dipst ick Unknown Analyte 1.030 Not Available darnell [address], [place], [place], [address], 12/23/2022 12:55:30 12/23/19 23 12/23/2022 urina lysis , dipst ick Unknown Analyte Negati ve Not Available eric [address], [place], [address], 12/23/2022 12:55:30 12/23/19 23 12/23/2022 urina lysis , dipst ick Unknown Analyte 6.5 Not Available [address], [place], [address], 12/23/2022 12:55:30 12/23/19 23 12/23/2022 urina lysis , dipst ick Unknown Analyte Negati ve Not Available eric maldonado [address], [place], [address], 12/23/2022 12:55:30 12/23/19 23 12/23/2022 urina lysis , dipst ick Unknown Analyte 0.2 E.U./d L Not Available eric maldonado [address], [place], [address], 12/23/2022 12:55:30 12/23/19 23 12/23/2022 urina lysis , dipst ick Unknown Analyte Negati ve Not Available eric [address], [place], [address], 12/23/2022 12:55:30 12/23/19 23 12/23/2022 urina lysis , dipst ick Unknown Analyte Negati ve Not Available eric [address], [place], [address], 12/23/2022 12:55:30 12/23/19 23 12/23/2022 rapid SARS CoV 2 Ag, QL IA, respi rator y speci men Unknown Analyte Normal =Negat osman Not Available eric maldonado [address], [place], [address], 12/23/2022 12:10:34 12/23/19 23 12/23/2022 rapid SARS CoV 2 Ag, QL IA, respi rator y speci men Unknown Analyte negati ve Not Available eric [address], [place], [address], 12/23/2022 12:10:34 12/29/11/15/2024 rapid strep group A, throa t Unknown Analyte positi ve Not Available [address] [place] [address] [place], [address], 11/15/2024 13:06:17 11/15/20 24 11/15/2024 rapid strep group A, throa t Unknown Analyte yes Not Available [address] [place] [address] [place], [address], 11/15/2024 13:06:17 11/15/20 24 11/15/2024 SARS CoV 2 (COVI D-19) Ag, QL, IA, upper respi rator y speci men Unknown Analyte negati ve Not Available [address] [place] [address] [place], [address], 11/15/2024 13:06:07 11/15/20 24 11/15/2024 SARS CoV 2 (COVI D-19) Ag, QL, IA, upper respi rator y speci men Unknown Analyte yes Not Available [address] [place] [address] [place], [address], 11/15/2024 13:06:07 11/15/20 24 11/15/2024 SARS CoV 2 (COVI D-19) Ag, QL, IA, upper respi rator y speci men Unknown Analyte Not Available [address] [place] [address] [place], [address], 11/15/2024 13:06:07 12/10/19 25 12/10/2024 SARS CoV 2 (COVI D-19) Ag, QL, IA, upper respi rator y speci men Unknown Analyte negati ve Not Available [address] [place] [address] [place], [address], 12/10/2024 17:41:20 12/10/19 25 12/10/2024 rapid flu (A+B) Unknown Analyte negati ve Not Available [facility] [address] [place], [address], 12/10/2024 17:42:04 12/10/19 25 12/10/2024 rapid flu (A+B) Unknown Analyte negati ve Not Available [address] [address] [place], [address], 12/10/2024 17:42:04 Result Notes None recorded. Problems Name Problem SNOMED Code Status Onset Date Resolution Date Notes Provider Name and Address Organization Details Recorded Time Colitis 69961743 Active Sandy O'Ivan null, PA - [facility] 4 13:02:40 Tuberculos is 26212509 Active pt has dorment tuberculosi s Sandy O'Ivan null, PA - [facility] 4 13:03:42 Anxiety 39289076 Active Jessica [place] null, PA - [facility] 5 17:26:46 Acne 67986402 Active Jessica [place] null, PA - [facility] 5 17:27:12 Notes:crohn's disease coliti s Problem Notes None recorded. Medical Equipment None Reported. Allergies Allergen ID Allergen Name Allergen Category Reaction Reaction Severity Criticality Documentation Date Start Date Code Code System Note Provider Name and Address Organization Details Recorded Time 467167 amoxicill in medicatio n hives Not available Not available 12/23/2022 723 RxNorm Lisa Simpson null, PA - [facility] 3 12:11:29 313871 almond allergeni c extract food Not available Not available Not available 12/23/2022 94345 7 RxNorm Lisa Simpson null, PA - [facility] 3 12:11:39 Medications Name Sig Start Date Stop Date Status Note LastModified by Organization Details LastModified Time tretinoin 0.1 % topical cream APPLY PEA SIZED AMOUNT TO FACE AT BEDTIME WITH MOISTURIZ ER 12/10 completed Not Available Not Available Not Available acetaminoph en 325 mg tablet TAKE 2 TABLETS BY MOUTH EVERY 6 HOURS NEEDED FOR PAIN 12/10 completed Not Available Not Available Not Available isotretinoi n 20 mg capsule TAKE 1 CAPSULE BY MOUTH TWICE A DAY DO NOT DISPENSE AFTER 05/15 12/23 completed Not Available Not Available Not Available fluconazole 150 mg tablet TAKE 1 TABLET (150 MG TOTAL) BY MOUTH ONCE FOR 1 DOSE. REPEAT DOSE IN 3 DAYS 12/10 completed Not Available Not Available Not Available prednisone 5 mg tablet TAKE 8 TABLETS (40 MG TOTAL) BY MOUTH DAILY WITH BREAKFAST FOR 21 DOSES. 12/10 completed Not Available Not Available Not Available tretinoin 0.05 % topical cream APPLY TOPICALLY 3X A WEEK. APPLY MOISTURIZ ER FIRST. INCREASE EVERY 2 WEEKS TOLERATED active Not Available Not Available No t Available sulfamethox azole 800 mg-trimetho prim 160 mg tablet TAKE 1 TABLET BY MOUTH TWICE A DAY FOR 10 DAYS 12/10 completed Not Available Not Available Not Available ondansetron 8 mg disintegrat ing tablet TAKE 1 TABLET BY MOUTH EVERY 8 HOURS NEEDED FOR NAUSEA OR VOMITING FOR UP TO 3 DAYS. 11/15 completed Not Available Not Available Not Available rifampin 300 mg capsule 12/10 completed Not Available Not Available Not Available lorazepam 0.5 mg tablet TAKE 1 TABLET BY MOUTH EVERY 6 HOURS NEEDED. active Not Available Not Available No t Available clindamycin 1 % topical gel APPLY ONCE DAILY TO FACE active Not Available Not Available No t Available cephalexin 250 mg/5 mL oral suspension Take 10 mL twice a day by oral route for 10 days. 12/10 completed Not Available Not Available Not Available triamcinolo ne acetonide 0.1 % topical ointment APPLY TOPICALLY 2 (TWO) TIMES A DAY NEEDED FOR IRRITATIO N OR RASH FOR UP TO 14 DAYS. 12/10 completed Not Available Not Available Not Available sulfamethox azole 200 mg-trimetho prim 40 mg/5 mL oral suspension Take 20 mL every 12 hours by oral route for 10 days. 12/10 completed Not Available Not Available Not Available omeprazole 20 mg capsule,del ayed release TAKE 2 CAPSULES BY MOUTH EVERY DAY active Not Available Not Available No t Available azithromyci n 200 mg/5 mL oral suspension 12/10 completed Not Available Not Available Not Available ibuprofen 100 mg/5 mL oral suspension TAKE 25 ML BY MOUTH EVERY 6 HOURS NEEDED 12/23 completed Not Available Not Available Not Available hydrocortis one 2.5 % topical ointment APPLY TOPICALLY 2 TIMES A DAY NEEDED FOR RASH. 12/10 completed Not Available Not Available Not Available ondansetron 4 mg disintegrat ing tablet TAKE 1 TABLET BY MOUTH EVERY 8 HOURS NEEDED FOR NAUSEA 12/10 completed Not Available Not Available Not Available azithromyci n 500 mg tablet TAKE 1 TABLET BY MOUTH DAILY FOR 3 DAYS 12/10 completed Not Available Not Available Not Available clindamycin 1.2 % (1 % base)-benzo yl peroxide 5 % topical gel APPLY A THIN LAYER TO FACE EVERY MORNING WITH FACIAL MOISTURIZ ER 12/10 completed Not Available Not Available Not Available adapalene 0.1 %-benzoyl peroxide 2.5 % topical gel with pump APPLY TO FACE EVERY OTHER NIGHT THEN AT BEDTIME WHEN TOLERATED USE AFTER FACIAL MOSITURIZ ER 11/15 completed Not Available Not Available Not Available Children's Acetaminoph en 160 mg/5 mL oral liquid TAKE 20 ML BY MOUTH EVERY 4-6 HOURS NEEDED FOR FEVER CONTROL 12/23 completed Not Available Not Available Not Available Winlevi 1 % topical cream APPLY THIN LAYER TO FACE EVERY MORNING AND evening. APPLY separate from adapalene 12/10 completed Not Available Not Available Not Available Paxlovid 300 mg (150 mg x 2)-100 mg tablets in a dose pack TAKE 3 TABLETS BY MOUTH TWICE A DAY FOR 5 DAYS 12/23 completed Not Available Not Available Not Available Rinvoq 45 mg tablet,exte nded release 12/10 completed Not Available Not Available Not Available Vitals Date Recorded Body height Body mass index (BMI) Body mass index (BMI) [Percentile] Per age and sex Body weight Pain severity - 0-10 verbal numeric rating [Score] - Reported Body temperature Respiratory rate Oxygen saturation Heart rate Systolic And Diastolic Provider Name and Address Organization Details Last Updated DateTime 154.94 cm 21.7 kg/m2 50 % 63835.1 2 g 0 98 [degF] 16 /min 97 % 94 /min 109/75 mm[Hg] Jessica Fair [place]aks PA - [facility] 5 17:36:05 Date Recorded Body weight Body mass index (BMI) Body mass index (BMI) [Percentile] Per age and sex Body height Pain severity - 0-10 verbal numeric rating [Score] - Reported Oxygen saturation Heart rate Respiratory rate Body temperature Systolic And Diastolic Provider Name and Address Organization Details Last Updated DateTime 3 84176.1 2 g 22.5 kg/m2 64 % 152.4 cm 3 96 % 103 /min 18 /min 97.9 [degF] 103/70 mm[Hg] Lisa Simpson [facility] 3 12:17:43 Date Recorded Body height Body mass index (BMI) Body mass index (BMI) [Percentile] Per age and sex Body weight Body temperature Oxygen saturation Heart rate Systolic And Diastolic Provider Name and Address Organization Details Last Updated DateTime 4 154.94 cm 22.1 kg/m2 55 % 35865.0 1 g 98.6 [degF] 100 % 121 /min 104/70 mm[Hg] Sandy Gonsales [facility] 4 13:00:17 Social History Question Answer Notes LastModified by Organizat ion Details LastModified Time Tobacco Smoking Status Never Smoker Lisa gomez [facility] 12/23/2022 12:15:02 Have You Had A Flu Shot This Season? No Information not available 11/15/2024 If No, Would You Like A Flu Shot Today? No Information not available 11/15/2024 What Is Your Water Source? City Information not available 12/23/2022 What Is Your Heat Source? Gas Information not available 12/23/2022 Do You Have Any Pets? Yes 2 Cats 4 Rats Information not available 11/15/2024 What Is Your Relationship Status? Single Information not available 11/15/2024 Are You Passively Exposed To Smoke? No Information no t available 11/15/2024 Have You Recently Traveled Abroad? No Information not available 12/10/2024 Are You Currently In School? No Information not available 11/15/2024 Sex: Unknown Functional Status Question Answer Note LastModified by Organizat ion Details LastModified Time Do you use any illicit or recreational drugs? No Information not available 12/10/2024 Do you or have you ever used any other forms of tobacco or nicotine? No Information not available 12/23/2022 What is your level of alcohol consumption? None Information not available 12/10/2024 Are you currently employed? Yes Information not available 11/15/2024 Mental Status None recorded. Family History Relationship Description Onset Age of this Age Resolved Age Notes LastModified by Organization Details LastModified Time Mother Malignant neoplasm of skin emonfette Not available 2022 12:14:17 Maternal Grandmother Malignant neoplasm of breast emonfette Not available 2022 12:14:26 Medical History No medical history recorded. Gynecological History Statement/Question Response Date of LMP 10/12/2025 Is there any chance of ? No LMP Definite Obstetrics History GPAL:G 0 P 0 0 0 0 Immunizations Vaccine Type Date Status Note Provider Nam e and Address Organization Details Recorded Time HPV9 0 completed Lisa Monfemare null, PA - [facility] 12/23/2022 12:11:15 HPV9 0 completed Lisa Monfemare null, PA - [facility] 12/23/2022 12:11:15 HPV9 2 completed Lisa Monfemare null, PA - [facility] 12/23/2022 12:11:15 Tdap 6 completed Lisa Monfette null, PA - [facility] 12/23/2022 12:11:15 varicella 2 completed Lisa Monfette null, PA - [facility] 12/23/2022 12:11:15 Hep B, adolescent or pediatric 1 completed Lisa Avilesfette null, PA - [facility] 12/23/2022 12:11:15 Hep B, adolescent or pediatric 1 completed Lisa Avilesfette null, PA - [facility] 12/23/2022 12:11:15 Hep B, adolescent or pediatric 1 completed Lisa Avilesromee null, PA - [facility] 12/23/2022 12:11:15 meningococcal MCV4P 1 completed Lisa Carlinmare null, PA - [facility] 12/23/2022 12:11:15 meningococcal MCV4P 6 completed Lisa Monfette null, PA - [facility] 12/23/2022 12:11:15 Influenza, split virus, quadrivalent, PF 1 completed Lisa Monfette null, PA - [facility] 12/23/2022 12:11:15 Past Encounters Encounter ID Performer Location Encounter Start Date Encounter Closed Date Diagnosis/Indication Diagnosis SNOMED-CT Code Diagnosis ICD10 Code Diagnosis IMO Codes Diagnosis Note [id number] [facility] [address] [address] [place] [address] 04/24/2022 12:51:40 04/24/2022 14:19:38 [id number] [address] [address] [address] [place] [address] 03/27/2021 19:05:59 03/27/2021 20:12:35 [id number] [address] [address] [address] [place] [address] 06/21/2020 19:19:21 06/21/2020 20:19:53 [id number] [address] [address] [place] [address] 07/07/2022 09:44:59 07/07/2022 12:14:39 [id number] [facility]AN B[facility] [address] [place] [address] 12/23/2022 11:07:02 12/23/2022 13:19:14 Fatigue 82671768 R53.83 Most likely viral etiology. COVID rapid negative. Suprapubic pain 17072428 6 R10.30 Urine dip looks ok- no evidence of infection. Will send the urine to culture. Acute uppe r respiratory infection 05332187 J06.9 [id number] TRUMAN Snider [address] [address] [place] [address] 11/15/2024 12:49:48 11/15/2024 13:27:01 Streptococcal sore throat 99127884 J02.0 Based on your Presentati on, Exam, and Lab Testing you are being diagnosed with Strep Throat. Your Rapid Strep Test was positive. I am going to prescribe you and antibiotic to cover this infection. Please be sure to complete the full course of this antibiotic to prevent antibiotic resistance . It is also important to complete this antibiotic because this infection is what causes Scarlet Fever/Rheu matic Heart Disease. Antibiotic s will typically take 4-5 days to start to work with symptom improvemen t. The following are my other recommenda tions to help with symptoms and is important for this diagnosis: 1. Do not share any food or drinks - strep is passed through direct saliva exchange (NOT IN THE AIR)2. Change your toothbrush in 3-4 days so that you don't re-infect yourself after you complete the antibiotic .3. Take Ibuprofen or Tylenol if you do not have any allergies to these medication s. If you take a blood thinner you should not take NSAIDS like Ibuprofen. These medication will help with the inflammati on in your respirator y tract which should help the cough.4. Do not take any Cold Medication s that have a Decongesta nt in it - this will dry out your throat and make the sore throat worse.5. Drinking Hot Tea with honey can help coat and soothe your throat.6. You would be considered contagious for the next 24-48 hours, or until fever resolves. I would be seen again if you develop any of the following symptoms.1 . Fever > 101.02. Stiff neck - where you can't turn your neck3. Trouble swallowing your saliva - drooling4. Swelling of a lymph node in your throat that is painful to touch5. Difficulty breathing6 . Severe Headache Thank you for using [facility] today, please feel free to contact our office if you have any questions or concerns. [id number] TRUMAN Snider [address] [facility] [place]reras [address] 12/10/2024 17:16:27 12/10/2024 17:51:49 Upper respiratory infection [id number] J06.9 Patient presented with symptoms of upper respirator y infection. Advised to drink plenty of fluids, run a cool-mist humidifier in room at night, gargle salt water for sore throat, and get plenty of rest. Patient should avoid over-exert ion and reduce exposure to irritants such as smoke, cold, dry air, and dust.Treat ment currently involves symptomati c relief. Nasal sprays like nasonex and flonase (or generic) as well as neti pot to help clear sinuses Patient may take acetaminop hen or ibuprofen as directed to reduce fever and body aches.Anti histamine and decongesta nt usage was discussed and recommenda tions made.Bettina nt understood these instructio ns and will follow up in the office in 10 days to 2 weeks if symptoms not improving. ER if any shortness of breath/sumit st pain or worsening. Thank you for using [facility] today, please feel free to contact our office if you have any questions or concerns. Health Concerns Section Related Observation LastModified by Organization Detai ls LastModified Time None Recorded Concern Status LastModified by Organization Details LastModified Time None Recorded Advance Directives Directive None Recorded Payers Insurance Date Sequence Insurance Name Policy Number Policy Chiang Covered Member ID Chiang Member ID Guarantor Name 12/10/2024 2 [place] [facility] [id number] Ilene Apprendahista 12/10/2024 1 [place] [employer] [facility] [place] [id number] Ilene Apprendaroyce Notes Date Note Type Note Provider Name and Address Organization Details Recorded Time 12/23/2022 text/html FatigueReported by PatientHPIFor severity, patient reportschanges in normal activities. For source of patient information, patient reportsinformation obtained from patientandpatient arrived at urgent care ambulatory. For timing, patient reportssudden.The patient reports for the last few days has been feeling very fatigued. Can't get out of bed. No sore throat. Mild abdominal discomfort. Had [employer] when she was in 5th grade. Denies sore throat. Friends at school positive for COVID. The patient denies chance of . Denies urinary symptoms. TRUMAN BRAVO [address] [place], [address], [place] - [facility] 12/23/2022 13:18:55 11/15/2024 text/html 19 y/o female here with sore throat, nausea, headache, fever since yesterday. [place], [address], [place] - [facility] 11/15/2024 13:19:59 12/10/2024 text/html 19 y/o female here with a week of congestion, cough, sore throat, headache, and fatigue. [facility] [place], [address], [place] - [facility] 12/10/2024 17:50:07 OBGyn Episode No OBEpisode recorded.
--- OUTSIDE RECORDS SUMMARY | 2025-10-08 20:51 | XMS_ITS | Encounter Summary ---
Author Organization [facility] Address [address] [place] [address] [place] [id number] Phone Care Team Providers Care Machine Feeder Name Role Phone Ashley Barakat MD Primary Care Provider [phone]- [phone] Encounter Details Date Type Department Care Team (Latest Contact Info) Description 07/28/2020 Transcribe Orders Virtual Department [address] [place] [address] Ashley Barakat MD [address] [address] [email or web address] Lower abdominal pain (Primary Dx) Social History Tobacco Use Types Packs/Day Years Used Date Smoking Tobacco: Never Assessed Comments Unknown Sex and Gender Information Value Date Recorded Sex Assigned at Not on file Legal Sex Female 2:07 PM EDT Gender Identity Not on file Sexual Orientation Not on file documented as of this encounter Plan of Treatment Not on file documented as of this encounter Visit Diagnoses Diagnosis Lower abdominal pain- Primary Abdominal pain, other specified site documented in this encounter Additional Health Concerns Infection Onset Date Last Indicated Resolved Time CDiff-Risk 06/22/2024 06/24/2024 06/24/2024 6:18 PM EDT CDiff-Risk 06/23/2024 06/23/2024 06/26/2024 10:0 8 AM EDT documented as of this encounter Care Teams Machine Feeder Relationship Specialty Start Date End Date Ashley Barakat MD [address] [place] [id number] [email or web address] PCP - General Pediatrics 03/08/20 documented as of this encounter Additional Source Comments The information contained in this document represents components of the legal health record. It is not the complete legal health record.[facility]
--- OUTSIDE RECORDS SUMMARY | 2025-10-08 20:51 | XMS_ITS | Clinical Summary ---
Author Organization [facility] Address [address] [place] [address] Phone Care Team Providers Care Superintendent [employer] Name Role Phone Ashley Barakat MD Primary Care Provider [phone]- [phone] Allergies Active Allergy Reactions Criticality Noted Date Comments Amoxicillin 08/04/2020 Lactose 11/13/2022 Penicillin Anaphylaxis,Anxiety, Itching,Lightheade dness High 09/03/2023 Tree Nuts 12/02/2023 Medications clindamycin (CLINDAGEL) 1 % gel 11/10/20 23 Active hydrocortisone 2.5 % ointment 12/02/19 24 Active tretinoin (RETIN-A) 0.1 % cream APPLY PEA SIZED AMOUNT TO FACE AT BEDTIME WITH MOISTURIZER 11/29/19 24 Active upadacitinib (RINVOQ) 45 mg ER 24 hr tablet Take 1 tablet (45 mg total) by mouth daily. 84 tablet 04/01/20 24 Active Additional Information Patient not taking.Reported on 09/18/2024 upadacitinib (RINVOQ) 30 mg ER 24 hr tablet Take 1 tablet (30 mg total) by mouth daily. 30 tablet 3 04/01/20 24 Active Additional Information Patient not taking.Reported on 06/22/2024 ondansetron (ZOFRAN-ODT) 4 MG disintegrating tablet Take 1 tablet (4 mg total) by mouth every 8 (eight) hours as needed for nausea. 10 tablet 1 06/26/20 24 Active LORazepam (ATIVAN) 0.5 MG tablet Take 1 tablet (0.5 mg total) by mouth every 6 (six) hours as needed. 5 tablet 06/26/20 Active triamcinolone acetonide 0.1 % ointment APPLY TOPICALLY 2 (TWO) TIMES A DAY NEEDED FOR IRRITATION OR RASH FOR UP TO 14 DAYS. 07/02/20 Active therapeutic multivitamin tablet Take 1 tablet by mouth daily. Active loratadine (CLARITIN) 10 mg tablet Take 10 mg by mouth daily. Active albuterol 90 mcg/actuation inhaler Inhale 2 puffs into the lungs every 4 (four) hours as needed for wheezing. Active rifAMPin (RIFADIN) 300 MG capsule Take 2 capsules (600 mg total) by mouth daily. 60 capsule 3 09/18/20 Active Active Problems Problem Noted Date Diagnosed Date No-show for appointment 08/21/2024 Assessment & Plan (10/23/2024 4:29 PM EST): No show for Pediatric ID outpatient f/u on 10/23/2024 after initial consultation on 09/18/24. As noted, she has not picked up rifampin prescription and therefore has not been on LTBI therapy since her hospitalization in June 2024. We will try to reach out again to reschedule. Assessment & Plan (08/21/2024 3:23 PM EDT): No show for Pediatric ID outpatient visit on 08/21/2024. As outlined in Dr. 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 While IGRA was borderline (with negative CXR and review of systems), she had prior negative studies and was at high risk for infection acquisition (homeless detention x 1 year followed by multiple residences) and for progression to disease (immunomodulatory therapy with infliximab, upadacitinib). She requires regular visits for interval review of medication adherence, clinical tolerance, toxicity monitoring studies and confirmation of completion of 120 total doses. We will try to reschedule in concert with possible Pediatric GI visit and/or discuss transfer to closer TB clinic. Latent tuberculosis by blood test 06/26/2024 Assessment & Plan (10/22/2024 7:50 PM EST): Ilene is a 19-year-old woman with LTBI in setting of borderline positive IGRA, negative chest radiography and negative symptom review warranting expedited initiation of therapy given Crohn's disease, recent conversion of IGRA raising risk of recent infection in setting of prolonged congregate living and immunomodulatory therapy, all of which raise the risk of progression to active disease. We reviewed tuberculosis epidemiology, infection vs. disease, manifestations of clinical illness, diagnostics, treatment options, administration, toxicity/monitoring, logistics of follow-up and need to return to care. She was started on rifampin therapy during her recent admission to [facility] 06/22-06/26/24 but as outlined, it is unclear how many doses she received as she does not recall full details. I have sent a new Rx for rifampin 600mg PO QD x 4 months/120 doses and outlined in detail the administration of capsules via swallowing or opening contents/mixing with small amount of non-dairy food or liquid. The U.S. Food and Drug Administration in 2019 posted an announcement that nitrosamine impurities have been detected in samples of rifampin. Some compounds in this class of substances (nitrosamines) have been implicated as possible carcinogens in middle or intermediate school principal animal studies, with toxicity largely related to cumulative exposure and lower risk in this clinical setting. 1) Rifampin 600 mg PO Q24H for 4 months. New eRx sent to preferred local pharmacy. Ilene aware that cost will not be covered by TDAP. 2) Rifampin may decrease Rinvoq levels and she should be monitored closely. I had previously ordered laboratory studies to follow on her regimen but she did not go to the lab after today's visit. 3) I have asked Ilene to send a message via PG or to speak with Pediatric ID nurse to review what medications she currently has at home. I emphasized that given the importance of treating LTBI, we may not include what rifampin (if any) she has taken since discharge in her 120-dose regimen. 4) I will coordinate a virtual follow-up in 1 month's time. Assessment & Plan (10/10/2024 11:52 PM EST): Ilene is a 19-year-old woman with LTBI in setting of borderline positive IGRA, negative chest radiography and negative symptom review warranting expedited initiation of therapy given Crohn's disease, recent conversion of IGRA raising risk of recent infection in setting of prolonged congregate living and immunomodulatory therapy, all of which raise the risk of progression to active disease. We reviewed tuberculosis epidemiology, infection vs. disease, manifestations of clinical illness, diagnostics, treatment options, administration, toxicity/monitoring, logistics of follow-up and need to return to care. She was started on rifampin therapy during her recent admission to [facility] 06/22-06/26/24 but as outlined, it is unclear how many doses she received as she does not recall full details. I have sent a new Rx for rifampin 600mg PO QD x 4 months/120 doses and outlined in detail the administration of capsules via swallowing or opening contents/mixing with small amount of non-dairy food or liquid. The U.S. Food and Drug Administration in 2019 posted an announcement that nitrosamine impurities have been detected in samples of rifampin. Some compounds in this class of substances (nitrosamines) have been implicated as possible carcinogens in middle or intermediate school principal animal studies, with toxicity largely related to cumulative exposure and lower risk in this clinical setting. 1) Rifampin 600 mg PO Q24H for 4 months. New eRx sent to preferred local pharmacy. Ilene aware that cost will not be covered by TDAP. 2) Rifampin may decrease Rinvoq levels and she should be monitored closely. I had previously ordered laboratory studies to follow on her regimen but she did not go to the lab after today's visit. 3) I have asked Ilene to send a message via PG or to speak with Pediatric ID nurse to review what medications she currently has at home. I emphasized that given the importance of treating LTBI, we may not include what rifampin (if any) she has taken since discharge in her 120-dose regimen. 4) I will coordinate a virtual follow-up in 1 month's time. Other specified eating disorder 06/24/2024 Assessment & Plan (06/26/2024 9:45 AM EDT): Today, Ilene shared more about her history of over-exercising and purging. She reports that her eating disorder began several years ago, with over-exercising and self-induced purging. She has a history of poor body image though has never received treatment for an eating disorder. More recently, she reports vomiting at home up to 2 times a day prior to admission but sometimes going several days without vomiting. She last vomited last night after eating goldfish in the hospital- she stared at the trash can and willed herself to vomit. It is difficult to tell if the vomiting is from her Crohn's or self-induced but she feels more guilty after eating certain foods (carbs) and will think of something gross to help herself vomit. She has also used a finger in the past to vomit, though not during this hospitalization. She reports interest in in person ED treatment. She does not report binge eating. A psychiatrist in the past has recommended ED therapy. Ilene is not currently connected to her PCP and is couch-surfing in the [facility] area, staying with friends and family. She is currently seeing a therapist (Ivan from [facility]) in [facility] and has seen her twice: [phone]. Left a message for Ivan Ilene's current therapist, to connect to for local in-person outpatient ED resources Recommend outpatient adolescent medicine referral, likely to [facility]. Candace Mills at [facility] in [place], Adolescent Medicine, would be a good resource: [phone], as would Karine Moralez in Adolescent Medicine at [facility] ([phone]) Recommend BMP, Mg, Phos prior to discharge to assess for electrolyte disturbance associated with vomiting, most recently last night. Ilene reports not liking most medicine- liquid or pills- and does not regularly take an MVI. However, she has taken a vitamin in the past that she doesn't mind, recommend continuing to do so given risk for electrolyte disturbance Recommend rechecking weight today (and daily) Recommend considering closer monitoring for purging after meals if Sharee remains in-patient (bedrest for 30min after snack with bed monitor or sitter) GI/PCP follow-up as planned Assessment & Plan (06/25/2024 6:21 PM EDT): Hx of bulemia disclosed to SW - to get adolescent, psych and nutrition consult - Seen by adolescent medicine virtually today. Patient would like to seek help, but currently not at a place where she is ready to yet - Being followed by psych while inpatient, feels safe going home when medically stable. Plans to follow with her primary psych at [facility] upon discharge. Denies intentional vomiting during this admission Alcohol abuse 06/24/2024 Assessment & Plan (06/25/2024 6:22 PM EDT): - disclosed alcohol missue to SW as a coping mechanism - to get psych and ACT team consults - Being followed by child psychiatry while inpatient - Seen and evaluated by ACT, working on [facility] referral Crohn's colitis, with rectal bleeding 06/23/2024 Assessment & Plan (06/25/2024 6:14 PM EDT): - GI consult, recommendations appreciated - abdominal US - evaluation for gallstones/etiology of n/v. Scheduled for tomorrow at 9am - MRE done, pending read - Solumedrol 20mg IV BID (last dose 87am) - transitioned to PO prednisone 20mg BID 8/7 PM - continue Rinvoq 45mg PO daily - zofran PRN n/v - Protonix 40 mg daily - to transition to PO once tolerating PO diet - monitor I/O - Regular diet, but NPO after midnight for Abd US - D5 NS @ 75ml/hr - wean as PO intake improves [ ] f/u: stool sudies -- C diff, fecal calprotectin [ ] borderline Tspot from 06/22, was negative in Aug 2023. CXR negative today. ID consulted, awaiting follow up testing recommendations Pain - Tylenol 650 mg PO PRN - avoid NSAIDs and opioids - heat packs prn VTE prophylaxis: SCDs, encourage ambulation Housing insecurity 06/23/2024 Assessment & Plan (06/23/2024 12:52 AM EDT): - was in detention until recently; currently 'couch hopping' - consult Weight loss 06/22/2024 Orthostatic hypotension 09/18/2023 Irregular menstrual bleeding 08/17/2022 PTSD (post-traumatic stress disorder) 08/17/2022 09/03/2023 Crohn's disease of both smal l and large intestine with rectal bleeding 08/17/2020 Anxiety 01/07/2020 09/03/2023 Overview (09/03/2023): Certainly affecting exam, perception of pain Last Assessment & Plan: Normal screening today, doing well. Certainly affecting exam, perception of pain Last Assessment & Plan: Normal screening today, doing well Primary insomnia 02/15/2017 09/03/2023 Overview (09/03/2023): Melatonin ; Helps her to sleep but [...] coffee every morning. Discussed sleep hygiene techniques. Pituitary microadenoma 05/18/2015 3 Overview (09/03/2023): Ordered by endocrinology to follow question of precocious puberty; questionable small abn seen in pituitary on scan in 2005 stable on follow up MRI in 2006. Findings are without clinical significance. Reviewed images and reports with parent and given copies of reports from [facility] 05/18/15. No repeat brain imaging needed, no neuro follow up needed for this. Autism spectrum disorder 02/11/2015 023 Overview (09/03/2023): Need [facility] therapist, care coordination Less anger [...] in place, good social connections. Scoliosis 02/15/2014 09/03/2023 Resolved Problems Problem Noted Date Diagnosed Date Resolved Date Urinary frequency 06/26/2024 06/26/2024 Overview (06/26/2024): Negative UA, reports last sex 4 years ago, denies change in vaginal discharge Screening examination for STI 06/23/2024 06/26/2024 Assessment & Plan (06/25/2024 6:16 PM EDT): Offered and consented patient STI screening 06/23. [x] GC/C negative [ ] F/u HIV, RPR, HCV Urinary urgency 06/23/2024 06/26/2024 Assessment & Plan (06/25/2024 6:15 PM EDT): Patient requested urinary urgency associated with nausea 06/23. Denies hematuria, dysuria or urinary frequency [x] UA reassuring, urine culture showing moderate growth with mixed organisms and contaminant. Will monitor. Advice given about COVID-19 virus by telephone 08/24/2020 09/18/2023 History of abdominal pain 07/11/2020 Cow's milk intolerance 07/11/202009/18 Elevated sed rate 07/11/2020 09/18/2023 Lactose intolerance 07/11/2020 09/18/20 23 Periumbilical abdominal pain 03/31/2020 09/18/2023 History of diarrhea 03/31/2020 09/18/20 23 Epigastric pain 03/10/2020 09/18/2023 Lower abdominal pain 03/10/2020 023 Diarrhea 03/10/2020 09/18/2023 Encounter for health [facility] and care of other healthy and child 09/06/2017 09/03/2023 3 Imaging abnormalities 05/18/2015 09/03/20232022 Overview (09/03/2023): Ordered by endocrinology to follow question of precocious puberty; questionable small abn seen in pituitary on scan in 2005 stable on follow up MRI in 2006. Findings are without clinical significance. Reviewed images and reports with parent and given copies of reports from [facility] 05/18/15. No repeat brain imaging needed, no neuro follow up needed for this. Family History Medical History Relation Comments Celiac disease Neg Hx Colon cancer Neg Hx Colon polyps Neg Hx Crohn's disease Neg Hx Inflammatory bowel disease Neg Hx Ulcerative colitis Neg Hx Social History Tobacco Use Types Packs/Day Years [...] as food, clothing, or medical care? No 11/27/2024 In the past 12 months have y ou been in a relationship with a person who hurts, threatens, or tries to control you? No 11/27/2024 Are you denied basic needs s uch as food, clothing, or medical care? No 11/27/2024 In the past 12 months have y ou been in a relationship with a person who hurts, threatens, or tries to control you? No 11/27/2024 Comments No Sex and Gender Information Value Date Recorded Sex Assigned at Not on file Legal Sex Female 2:07 PM EDT Gender Identity Not on file Sexual Orientation Not on file Last Filed Vital Signs Vital Sign Reading Time Taken Comments Blood Pressure 104/71 11/27/2024 10:54 PM EST Pulse 84 11/27/2024 10:54 PM EST Temperature 36.3 C (97.4 F) 11/27/2024 10:54 PM EST Respiratory Rate 16 11/27/2024 10:54 PM EST Oxygen Saturation 100% 11/27/2024 10:54 PM EST Inhaled Oxygen Concentration - - Weight 53 kg (116 lb 13.5 oz) 09/18/2024 2:31 PM EDT Height 154 cm (5' 0.63 ) 09/18/2024 2:31 PM EDT Body Mass Index 22.35 09/18/2024 2:31 PM EDT Plan of Treatment Health Maintenance Due Date Last Done Comments DEVELOPMENTAL/BEHAVIORAL SCREENING (PHQ, PSC, or SWYC) 2008 COVID-19 VACCINE (#1) 2010 DEPRESSION SCREENING 2017 SMOKING Hx and SMOKELESS TOBACCO SCREENING 2018 MENINGOCOCCAL VACCINES (B) (1 of 2 - Standard) 2021 PNEUMOCOCCAL VACCINES (0-49 years) (1 of 2 - PCV) 2024 04/19/2006, 2005, 2005, Additional history exists INFLUENZA VACCINE (#1) 2025 08/11/2021 COMBINED DTaP,Tdap,Td (7 - Td or Tdap) 02/23/2026 02/24/2016, 01/09/2010, 07/23/2006, Additional history exists MMR VACCINES Completed 01/09/2010, 01/21/2006 MENINGOCOCCAL VACCINES (ACWY) Completed 02/03/2021, 02/24/2016 HPV VACCINES Completed 07/04/2022, 03/18, 01/28/2020 VARICELLA VACCINES Completed 07/04/2022, 0 01/09/2010, 01/21/2006 ADOLESCENT UNIVERSAL LIPID SCREENING Completed 04/03/2024 HEPATITIS C SCREENING Completed 06/24/2024 , 12/03/2023, 11/29/2020, Additional history exists HIV ONE-TIME SCREENING (18-65 YEARS) Completed 06/24/2024 HEPATITIS A VACCINES Aged Out No long er eligible based on patient's age to complete this topic HIB VACCINES Aged Out No longer eligi ble based on patient's age to complete this topic Medical Devices Not on file Procedures Procedure Name Priority Date/Time Associated Diagnosis Comments HEPATITIS C VIRAL LOAD, PCR Routine 06/24/2024 3:20 PM EDT LIPID PANEL Routine 04/03/2024 4:13 PM EDT Crohn's disease of both small and large intestine with rectal bleeding from Last 3 Months or Most Recently Relevant to Health Maintenance Results * Hepatitis C viral load (PCR) (06/24/2024 3:20 PM EDT) HCV RNA DETECT/QNT PLEASE SEE REPORT IN EPIC MEDIA IU/mL [facility] Blood (Blood) 06/24/2024 3:2 0 PM EDT 06/24/2024 3:46 PM EDT us Joy Moeller PAPER PATTERN INSPECTOR LAB BLOOD BKR ORDERABL ES Final Result [facility] [address], [facility] * (ABNORMAL) Lipid panel (04/03/2024 4:13 PM EDT) HDL 55 mg/dL [facility] Comment: Interpretation <40 mg/dL: Low HDL cholesterol (major risk factor for CHD) Greater than or equal to 60 mg/dL: High HDL cholesterol ( negative risk factor for CHD) HDL - cholesterol is affected by a number of factors, e.g. smoking, excerise, hormones, sex and age. CHOLESTEROL 148 0 - 240 mg/dL [facility] TRIGLYCERIDES 87 30 - 160 mg/dL [facility] LDL 76 50 - 129 mg/dL [facility] Comment: LDL levels in terms of risk for coronary heart disease: <100 mg/dL: Optimal 100-129 mg/dL: Near or above optimal 130-159 mg/dL: Borderline high 160-189 mg/dL: High >190 mg/dL: Very High CARDIAC RISK RATIO 2.7(L) 3.3 - 4.4 C [facility] Blood 04/03/2024 4:13 PM EDT 04/03/2024 4:20 PM EDT us Grace Paulino MD LAB BLOOD BKR ORDERABLES Final Result [facility] [address] [place] [address] from Last 3 Months or Most Recently Relevant to Health Maintenance Insurance [employer] [facility] [employer] [facility] [employer] [facility] [employer] [facility] [employer] [facility] [place] [address] [facility] Advance Directives For more information, please contact: [phone] (9AM - 5PM [facility], Saturday-Saturday) * Full Code (Latest Code Status on File) Date Activated Date Inactivated Comments 06/23/2024 1:09 AM Question Answer Comments Code Status Confirmed With: Patient Care Teams Superintendent [employer] Relationship Specialty Start Date End Date Ashley Barakat MD [address] [place] [address], [facility] [address] [place] [address] PCP - General Pediatrics 03/08/20 Additional Source Comments The information contained in this document represents components of the legal health record. It is not the complete legal health record.[facility]
--- OUTSIDE RECORDS SUMMARY | 2025-10-08 20:51 | XMS_ITS | Encounter Summary ---
Author Organization [facility] Address [address] [place] [address] [place] [address] Phone Care Team Providers Care Director Of Vocational Guidance Name Role Phone Ashley Barakat MD Primary Care Provider [phone]- [phone] Encounter Details Date Type Department Care Team (Late st Contact Info) Description 11/26/2022 Procedure Pass [facility] 4 ENDO DEPT [address] [facility], 4th [place] [address] Social History Tobacco Use Types Packs/Day Years Used Date Smoking Tobacco: Never Alcohol Use Standard Drinks/Week Comments Yes 2 (1 standard drink = 0.6 oz [...] documented as of this encounter Care Teams Director Of Vocational Guidance Relationship Specialty Start Date End Date Ashley Barakat MD [address] [place] [address], [address] [place] [address] PCP - General Pediatrics 4/21/20 documented as of this encounter Additional Source Comments The information contained in this document represents components of the legal health record. It is not the complete legal health record.[facility]
--- NOTE | 2025-10-08 21:32 | MHC.EDTECH ---
Patient is refusing to have her blood drawn. She was agreeable to the COVID/FLU/SARS nasal swab which was obtained and sent to lab. Patient currently in the bathroom giving us a urine sample to collect. RN made aware of refusal of blood work
--- NOTE | 2025-10-08 21:36 | ED_ITS ---
HPI - Chest Pain General Chief Complaint: Chest Pain Stated Complaint: chest pain Time Seen by Provider: 10/08/25 20:57 History of Present Illness ED Provider: Jordana Mcgovern HPI narrative: 20-year-old female with medical history of binge alcohol use presents to the ED for evaluation of midsternal chest discomfort, generalized dizziness and feeling as though she is going to faint, as well as generalized fatigue and nausea for 1 day. She reports that she was being worked up for pots outpatient with Cardiology about 2 years ago, but did not follow up with a Holter monitor. She has been binge drinking every few days for the past 2 years. Occasionally has nausea without vomiting, no diarrhea or constipation. No fever or chills or recent illnesses. She reports that today the discomfort in the chest felt more severe, which prompted her ER visit. Reports occasional shortness of breath, no difficulty getting air in. No air hunger. No orthopnea. No unilateral leg swelling or pain. Not on hormonal control. Related Data Previous Rx's ?Medication ?Instructions ?Recorded azithromycin 500 mg tablet 500 mg PO DAILY 3 days #3 t abs 07/07/24 Allergies Allergy/AdvReac Type Severity Reaction Status Date / Time amoxicillin Allergy Anaphylaxis Verified 10/08/25 20:35 Penicillins (PCN) Allergy Anaphylaxis Verified 10/08/25 20:35 Review of Systems 2 Review of Systems: ROS is otherwise negative unless mentioned in HPI. [facility] Past Medical History Medical History Latent tuberculosis Crohn's colitis Social History Social History Alcohol intake: current Alcohol intake frequency: a few times a week Alcohol type: hard liquor Smoked in Last 30 Days: No Use of substances other than those prescribed or required for medical reasons: No Substance Use Type: Marijuana Advance Directives: No Advance Directives Information Provided: Yes Do you have a plan to hurt others: No Plan Patient : No Physical Exam 2 Exam: Exam: Nursing notes and vital signs reviewed. Constitutional: Well-appearing, NAD. Alert. Oriented X3. Eyes: Pupils equal, round and reactive to light. ENT: Pharynx normal. Neck: Normal inspection. Neck supple. CVS: Normal heart rate and rhythm. Pulses normal. Respiratory: No respiratory distress. Breath sounds normal. Abdomen: Soft and nontender. +BSx4. Skin: Skin warm and dry. Normal skin color. Extremities: No lower extremity edema. Neuro: Oriented X 3. No motor deficit. Vital Signs: Vital Signs: Last Vital Signs Temp 98.2 F 10/08/25 22:17 Pulse 83 10/08/25 23:37 Resp 18 10/08/25 23:37 BP 94/62 10/08/25 23:37 Pulse Ox 100 10/08/25 23:37 O2 Del Method Room Air 10/08/25 23:37 BMI result Body Mass Index 23.6 Medications Administered Discontinued Medications Generic Name Dose Route Start Last Admin Trade Name Freq PRN Reason Stop Dose Admin Sodium Chloride 1,000 mls @ 999 mls/hr 10/08/25 21:13 10/08/25 22:00 Ns IV 10/08/25 22:13 999 mls/hr .Q1H1M ONE Administration Medical Decision Making Medical Decision Making MDM Narrative: Upon my assessment, she overall does appear well. She does inform me that she has a drinking problem, and binge drinks every couple of days. She has been doing this for about 2 years now. She reports over the past several months she has had several episodes of syncope where she randomly passes out. Two years ago she was being worked up for POTS disorder with cardiology but never followed up with them for a Holter monitor. Reports that today the pain in her chest became more severe which prompted her ER visit. She has baseline everyday chest discomfort. Describes occasional palpitations. No abdominal pain, occasional nausea. No diarrhea or constipation. We will obtain a broad workup including basic labs, liver testing, D-dimer to rule out underlying PE then reassess. 2340-- her workup was overall reassuring, negative D-dimer, given she is PERC negative does not need additional testing for PE r/o. Flat troponin. Her TSH is mildly elevated, T4 is normal, she will need to follow up with primary care provider regarding these findings. Some anemia with a hemoglobin of 10.3, nonspecific, possibly older unclear. Otherwise workup has been reassuring. She reports feeling improvement after the fluid bolus. There is no indication for additional testing at this time, she is agreeable for follow up care outpatient. Provided return precautions to the ED, she expressed understanding. She did request resources for hospitals/pcp/fu in the [employer] because she is frequently there and not in [facility], which was provided. Differential Diagnosis Differential Diagnoses: The differential diagnosis associated with the presentation includes Thyroid storm, pots, syncope, PE, ACS, arrhythmia, electrolyte abnormality, Admission/Observation Consideration of admission/observation: Escalation of care including admission/observation considered (Not indicated) Lab Data MDM Lab Attestation statement: I reviewed the patient's lab results. (overall reassuring) 10/08/25 21:56 10/08/25 21:56 Labs: Lab Results 10/08/25 10/08/25 Range/Units 21:26 21:56 WBC 8.5 (4.8-10.8) X10*3/uL RBC 3.92 L (4.20-5.50) X10*6/uL Hgb 10.3 L (12.0-16.0) g/dl Hct 31.2 L (37.0-47.0) % MCV 79.6 L (80.0-98.0) fL MCH 26.3 L (27.0-33.0) pg MCHC 33.0 (31.0-35.0) g/dl RDW 13.4 (11.0-16.0) % Plt Count 337 (160-400) X10*3/uL MPV 8.6 L (9.4-12.3) fL Immature Gran % (Auto) 0.4 (0.0-0.4) % Neut % (Auto) 51.8 (45-73) % Lymph % (Auto) 34.7 (20-40) % [place] % (Auto) 8.1 (2-11) % Eos % (Auto) 4.4 H (0-4) % Baso % (Auto) 0.6 (0-2) % Lymph # (Auto) 2.9 (1.2-4.9) X10*3/uL [place] # (Auto) 0.7 (0.1-1.2) X10*3/uL Eos # (Auto) 0.4 (0.0-0.4) X10*3/uL Baso # (Auto) 0.1 (0.0-0.2) X10*3/uL Abs Immat Gran (auto) 0.03 (0.00-0.03) X10*3/uL Absolute Neuts (auto) 4.4 (2.0-8.3) x10*3/uL Absolute Nucleated RBC 0.000 (0.0-0.012) X10*3/uL Nucleated RBC % (auto) 0.0 (0.0-0.2) /100WBC PT 12.3 (11.2-13.5) SEC INR 1.0 (0.9-1.1) D-Dimer High Sensitivty < 150 NG/ML Sodium 141 (135-145) mmol/L Potassium 3.5 (3.3-5.1) mmol/L Chloride 109 H (96-108) mmol/L Carbon Dioxide 27 (22-29) mmol/L Anion Gap 9 L (12-20) BUN 6 L (9-16) mg/dL Creatinine 0.65 (0.5-1.4) mg/dL Estim Creat Clear Calc 107.3 Estimated GFR > 60 Random Glucose 82 (60-115) mg/dL Calcium 8.6 (8.4-10.2) mg/dL Total Bilirubin 0.2 (0.0-1.0) mg/dL Direct Bilirubin < 0.2 (0.0-0.5) mg/dL AST 20 (5-31) U/L ALT 8 (0-31) U/L Alkaline Phosphatase 87 (39-117) U/L Troponin I High Sens < 2.7 (<3.5-17.0) ng/L Total Protein 7.1 (6.5-8.0) g/dL Albumin 3.9 (3.5-5.0) g/dL Lipase 40 (8-78) U/L TSH 5.56 H (0.32-4.0) uIU/mL Free T4 1.04 (0.71-1.85) ng/dL Urine Color Yellow Urine Appearance Clear Urine pH 7.0 (5.0-9.0) Ur Specific [place] <= 1.005 (1.005-1.025) Urine Protein Negative (Neg-Trace) mg/dL Urine Glucose (UA) Negative (Negative) mg/dL Urine Ketones Negative (Negative) mg/dL Urine Blood Negative (Negative) Urine Nitrite Negative (Negative) Ur Leukocyte Esterase Trace H (Negative) Urine RBC 0-2 (0-2) /HPF Urine WBC 0-5 (0-5) /HPF Ur Squamous Epith Cells 0-2 (0-2) /HPF Urine Bacteria 1+ (None Seen) Hyaline Casts 0-2 (0-2) /LPF Urine Test NEGATIVE (NEGATIVE) Influenza Type A (PCR) NEGATIVE (Negative) Influenza Type B (PCR) NEGATIVE (Negative) RSV RNA Qual (PCR) NEGATIVE (Negative) SARS-CoV-2 RNA (RT-PCR) NEGATIVE (Negative) Independent Interpretation I performed an independent interpretation of an: Plain X-Ray Interpretation: I have reviewed the patient's imaging and agree with the radiologist's findings. Radiology Impression Discussion of test interpretation with radiology: I have reviewed the radiologist's reading. Radiologist Impression: Chest X-Ray: IMPRESSION: 1. No acute findings. Independent Historian Clinical information obtained from an independent historian. History obtained from or confirmed by: Spouse (Boyfriend) External Record Review prior ED visits Social Determinants Patient?s care significantly limited by Social Determinants of Health including: Alcoholism and drug addiction in family and Problems related to primary support group Discharge Plan Discharge Clinical Impression: Atypical chest pain Patient Disposition: Home, Self-Care Instructions: Noncardiac Chest Pain (ED) Additional Instructions: As we discussed, your workup today was overall reassuring. However, your thyroid test called her TSH was mildly elevated. Please get this monitored outpatient with your PCP. He requested referrals to [facility], I have listed both [facility] on your instructions for your convenience, as well as [facility] and primary care providers. Please follow up with us in the next 1 week. With any worsening complaints at any time, please seek re-evaluation in the ED. Prescriptions: No Action azithromycin 500 mg tablet 500 mg PO DAILY 3 Days Qty: 3 0RF Referrals: [facility] Community Navigation [Provider Group] [facility] Family Medicine [Provider Group, Family Practice] [facility] [Provider Group] [facility] [Outside] Referral Note: [facility] location. [facility] [Provider Group] Referral Note: [facility] location. Print Language: Uzbek
[2025-10-08 22:01] LABS: MANUAL DIFF FLAG NO
[2025-10-08 22:02] LABS: Hematocrit 31.2 % (37.0-47.0); Hemoglobin 10.3 g/dl (12.0-16.0); Imm Gran Abs Auto 0.03 X10*3/uL (0.00-0.03); Imm Gran Pct Auto 0.4 % (0.0-0.4); Lymphocytes Absolute Auto 2.9 X10*3/uL (1.2-4.9); Mean Corpuscular HGB Conc 33.0 g/dl (31.0-35.0); Mean Corpuscular Hemoglobin 26.3 pg (27.0-33.0); Mean Corpuscular Volume 79.6 fL (80.0-98.0); NRBC Abs Auto 0.000 X10*3/uL (0.0-0.012); NRBC Pct Auto 0.0 /100WBC (0.0-0.2); Platelet Count 337 X10*3/uL (160-400); Red Blood Count 3.92 X10*6/uL (4.20-5.50); White Blood Count 8.5 X10*3/uL (4.8-10.8)
[2025-10-08 22:03] LABS: Appearance Urine Clear; Glucose Urine UA Negative (Negative); PH 7.0 (5.0-9.0); Specific Gravity - Urine <= 1.005 (1.005-1.025); UMIC TRIGGER UACC YES
[2025-10-08 22:07] LABS: INTERNATIONAL NORM RATIO 1.0 (0.9-1.1); Prothrombin Time 12.3 SEC (11.2-13.5)
[2025-10-08 22:10] LABS: D Dimer High Sensitivity < 150 NG/ML
[2025-10-08 22:12] LABS: Resp Syncy Virus RNA Qual PCR NEGATIVE (Negative); SARS COV2 PCR INHOUSE NEGATIVE (Negative)
[2025-10-08 22:17] VITALS: BP 99/56; PULSE 88; RESP 12; TEMP 36.8; O2SAT 99
[2025-10-08 22:19] VITALS: PULSE 87
[2025-10-08 22:30] LABS: Alanine Aminotransferase 8 U/L (0-31); Albumin Level 3.9 g/dL (3.5-5.0); Alkaline Phosphatase 87 U/L (39-117); Anion Gap 9 (12-20); Aspartate Amino Transferase 20 U/L (5-31); Blood Urea Nitrogen 6 mg/dL (9-16); Calcium 8.6 mg/dL (8.4-10.2); Carbon Dioxide 27 mmol/L (22-29); Chloride 109 mmol/L (96-108); Creatinine Clr Calc Pharmacy 107.3; Estimated Glomerular Filt Rate > 60; Lipase 40 U/L (8-78); Potassium 3.5 mmol/L (3.3-5.1); Sodium 141 mmol/L (135-145); Total Protein 7.1 g/dL (6.5-8.0)
[2025-10-08 22:32] LABS: Troponin-I High Sensitivity < 2.7 ng/L (<3.5-17.0)
[2025-10-08 23:17] LABS: UPreg QC Valid YES
[2025-10-08 23:23] LABS: Free T4 (Free Thyroxine) 1.04 ng/dL (0.71-1.85)
[2025-10-08 23:37] VITALS: BP 94/62; PULSE 83; RESP 18; O2SAT 100
[2025-10-09 00:01] VITALS: BP 94/62; PULSE 83; RESP 18; TEMP 36.8; O2SAT 100
== END 2025-10-09 00:03 | disposition home or self-care (01) ==
PROVIDERS: Nurse Practitioner; Emergency Provider Emergency Medicine
DX: R07.89 Other chest pain (principal); R11.0 Nausea; R42 Dizziness and giddiness; Z03.818 Encounter for observation for suspected exposure to other biological agents ruled out; Z79.899 Other long term (current) drug therapy
CPT/HCPCS: 36415; 71046; 80053; 81001; 81025; 82248; 83690; 84439; 84443; 84484; 85025; 85379; 85610; 87637; 93005; 99285

== ENCOUNTER → 2025-10-08 20:29 | Outpatient (BNV) | payer BC, MEDICAID, SELFPAY | PROVIDERS: Emergency Provider Emergency Medicine; Visit Provider Internal Medicine | DX: R07.9 Chest pain, unspecified (principal) | CPT/HCPCS: 93010 ==

== ENCOUNTER → 2025-10-08 21:22 | Outpatient (BNV) | payer BC, MEDICAID, SELFPAY | PROVIDERS: Visit Provider Student in an Organized Health Care Education/Training Program | DX: R07.9 Chest pain, unspecified (principal) | CPT/HCPCS: 71046 ==